=== PATIENT | female | born 1975 | race Caucasian/White ===

== ENCOUNTER 2024-11-28 08:43 | Day surgery (SDC) | payer OTHER, SELFPAY ==
--- NOTE | 2024-11-21 15:41 | HP.PCM_ITS ---
History and Physical Date of Admission: 11/28/24 HPI: The patient is a 49 year old female presenting for pre-operative visit. She is scheduled for Laparosocpy with LSO, right salpingectomy, hysteroscopy D&C with IUD insertion for menorrhagia, pelvic pain, left ovarian cyst and paratubal cyst and sterilization on 11/28/24. Procedure discussed along with risks, benefits and complications. Other alternatives discussed for management. Consent form signed? no. ? ? PAST MEDICAL HISTORY PAST MEDICAL HISTORYDiagnosisDate?Anemia?? A TEENAGER ?Hypothyroid??Infertility, female??WITH 1ST ?Rheumatoid Arthritis??Seroma??ANTERIOR TO UTERUS , SEE US 03/2011?Trauma??LEFT ELBOW FRACTURE 2012 ? ? PAST SURGICAL HISTORY PAST SURGICAL HISTORYProcedureLateralityDate? DELIVERY ONLY?05/20/2007? , low cervical? DELIVERY ONLY?11/14/2013?, low transverse?EXCISION PILONIDAL CYST/SINUS SIMPLE???HERNIA REPAIR HX?2018? abdominal recti repair and tummy tuck at same time?LIG/TRNSXJ FLP TUBE ABDL/VAG APPR UNI/BI?11/14/2013?Tubal ligation?PAST SURGICAL HISTORY OF???breast reduction?PAST SURGICAL HISTORY OF???RIGHT ELBOW ? ? ? CURRENT MEDICATIONS Current Outpatient MedicationsMedicationSigDispenseRefill?meloxicam (MOBIC) 15 mg tabletTake 15 mg by mouth.???spironolactone (ALDACTONE) 50 mg tabletTake 50 mg by mouth once daily.???No current facility-administered medications for this visit. ? ? ALLERGIES: Patient has no known allergies. ? PERSONAL HISTORY: SOCIAL HISTORY Social History?Tobacco Use?Smoking status:Never?Smokeless tobacco:NeverVaping Use?Vaping status:Never UsedSubstance Use Topics?Alcohol use:Yes??Comment: Rarely,NOT WHILE ?Drug use:No ? FAMILY HISTORY: FAMILY HISTORY FAMILY HISTORY ProblemRelationAge of Onset?ThyroidMother??other (Uterine problems)Mother?? Needed D&C?HypertensionFather??other (ovarian cancer)Maternal [id number] - 69?HeartMaternal Grandfather??HypertensionPaternal Grandmother??HeartPaternal Grandfather??DiabetesPaternal Uncle? ? ? REVIEW OF SYMPTOMS: GENERAL: denies fevers or chills ENDOCRINOLOGY: has not been on steroids Cardiology : denies palpitations or chest pain Respiratory: denies SOB or cough Hematology: denies history of prolonged bleeding or easy bruising or VTE Allergy: Denies history of personal or family history of allergy to anesthesia ? PHYSICAL EXAMINATION: ? VITALS: Last menstrual period 10/31/2024. ? GENERAL: The patient is well nourished, well hydrated in no acute distress. , The patient is oriented to time, place, and person. ? pelvic US 11/08/24: Indication menorrhagia with regular cycle, Dysmenorrhea, ovarian cyst left Impression Uterus 114 x 66 x 57 mm and axial Myometrium contains a notable scar defect measuring 7 mm deep by 5 mm long, there is 6 mm of residual myometrium and 18 mm of adjacent myometrium Endometrium 7 mm Cervix normal with nabothian cysts Right ovary 25 x 42 x 24 mm and normal O RADS one Left ovary 79 x 46 x 50 mm, there is a 52 x 46 x 52 mm unilocular simple cyst, O RADS two, recommend repeat imaging in 12 months. Additionally there is a 30 x 30 x ?38 mm bilocular cyst, O RADS two, recommend repeat imaging in 6 months. Almost certainly benign Recommendations O RADS two lesions in the left ovary. Recommend follow-up imaging in 6 months scar defect noted ? ? ? IMPRESSION: left ovarian cyst and paratubal cyst, sterilization and menorrhagia with regular cycle ? PLAN: The risks/benefits/alternatives and personal involved for the planned Laparosocpy with LSO, right salpingectomy, hysteroscopy D&C with polyp resection and IUD insertion for menorrhagia,were reviewed with the patient. Her questions were answered to her satisfaction and she desires to proceed. Consent was signed. I reviewed with her postop instructions and expectations. ? ? I have reviewed and updated past medical and surgical history, medications and allergies Assessment & Plan Assessment/Plan (1) Left ovarian cyst: (2) Sterilization: (3) Menorrhagia with regular cycle: (4) Endometrial polyp: (5) Encounter for IUD insertion:
[2024-11-28] VITALS (11 sets, daily range): BP systolic 91–129; BP diastolic 59–84; PULSE 65–94; RESP 16–18; TEMP 36–36.6; O2SAT 93–100; BMI 33.3
[2024-11-28] MEDS: Lactated Ringers 1,000 ML 15 ML IV (09:29)
[2024-11-28 09:35] LABS: Hematocrit 40.4 % (37-47); Hemoglobin 13.7 g/dL (12.0-15.0); Immature Granulocytes Count 0.020 X10^3/uL (0.0-0.0); Mean Corp Hgb Conc 33.9 g/dL (32-36); Mean Corpuscular Volume 86.7 fL (81-99); Mean Platelet Vol. 10.9 fl (6.2-12.0); NRBC Flagged by Analyzer 0 % (0-5); Platelet Count 218 K/mm3 (150-450); RBC Distribution Width CV 12.5 % (11.6-14.6); RBC Distribution Width SD 39.4 fl (35.1-43.9); Red Blood Count 4.66 M/mm3 (4.2-5.4); White Blood Count 7.1 K/mm3 (4.4-11.0)
--- NOTE | 2024-11-28 09:46 | PCM.PRE.AN2 ---
ASA Classification* ASA Classification ASA Classification: 2 Assessment & Plan Anesthesia* Anesthesia Assessment Anesthesia Assessment: Discussed sedation and/or anesthesia options, risks, benefits, and alternatives with patient/parents/legal guardian/POA. Questions invited. The patient/parents/legal guardian/POA seems to understand and agrees to proceed with anesthesia plan. Reviewed the physical assessment, medical history, allergy history and patient home medications list prior to surgery/procedure/anesthetic and documented any changes. Performed airway and anesthesia risk assessments. Anesthesia Type Anesthesia Type: General History Source History Obtained from:: Patient and Chart Anesthesia Focused Assessment* Temperature: 97.8 F Pulse Rate: 74 Blood Pressure: 129/84 Respiratory Rate: 18 Pulse Ox: 97 Oxygen Delivery Method: Room Air Airway Assessment Mouth opens: >3 cm Mallampati Score: I Teeth Condition: Intact Neck Range of motion (ROM): Full ROM Labs Anesthesia Preop lab: CBC WBC 7.1 K/mm3 (4.4-11.0) 11/28/24 09:15 11/28/24 RBC 4.66 M/mm3 (4.2-5.4) 11/28/24 09:15 11/28/24 Hgb 13.7 g/dL (12.0-15.0) 11/28/24 09:15 11/28/24 Hct 40.4 % (37-47) 11/28/24 09:15 11/28/24 Plt Count 218 K/mm3 (150-450) 11/28/24 09:15 11/28/24 CHEMISTRY Potassium 3.6 mmol/L (3.5-5.1) 08/29/13 12:08/29/13 Sodium 134 mmol/L (136-145) L 08/29/13 12:08/29/13 BUN 10 mg/dL (7-18) 08/29/13 12:08/29/13 Creatinine 0.5 mg/dL (0.6-1.0) L 08/29/13 12:06 08/29/13 Glucose 98 mg/dL (70-110) 08/29/13 12:06 08/29/13 COAG Pre-Assessment Diagnosis/Proposed Procedure Planned Operative Procedure(s): EXAM UNDER ANESTHESIA, LAPAROSCOPIC LEFT SAPLINGOOPHORECTOMY, RIGHT SALPINGECTOMY, HYSTEROSCOPY DILATION AND CURRETAG WITH POLYP RESECTION, AND IUD INSERTION Anesthesia History Anesthesia History - trademark paralegal: Anesthesia History - trademark paralegal Hx Hospitalization No 11/26/24 11:15 Any Problems With Anesthesia No 11/26/24 11:15 Cholinesterase deficiency No 11/26/24 11:15 You/Your Family Experience No 11/26/24 11:15 fever (hyperthermia) with Relationship Recent Exposure to Contagious No 11/28/24 09:24 Disease Does patient have nerve No 11/26/24 11:15 stimulator Patient instructed to have device shut off --Does patient have Pacemaker No 11/28/24 09:24 or ICD? When Was Last Pacemaker Check QUESTION #4 FULL TEXT: You/Your Family Experience fever (hyperthermia) with Anesthesia Last Oral Intake Last Oral intake: Last Oral Intake NPO since 20:30 11/28/24 09:24 Meds taken in AM with sips of No 11/28/24 09:24 water? Meds patient instructed to take am of surgery PONV PONV - trademark paralegal: PONV - trademark paralegal Female Yes 11/26/24 11:15 HX of Motion Sickness No 11/26/24 11:15 HX of N/V After Surgery No 11/26/24 11:15 Non-Smoker Yes 11/26/24 11:15 Duration of Surgery greater Yes 11/26/24 11:15 than 60 minutes Number of Risk Factors 3 11/26/24 11:15 PONV Score Moderate Risk 11/26/24 11:15 Height & Weight Height & Weight: Anesthesia: Height & Weight Height 5 ft 2 in 11/28/24 09:24 Weight: 82.6 kg 11/28/24 09:24 Body Mass Index (BMI) 33.3 11/28/24 09:24 Respiratory Assessment Respiratory Assessment - trademark paralegal: Respiratory Tract Infection Hx - trademark paralegal Hx Respiratory Tract Infection No 11/26/24 11:15 STOP Sleep Apnea STOP Sleep Apnea - trademark paralegal: STOP Sleep Apnea - trademark paralegal Hx Hypertension Yes: CONTROLLED WITH MEDS 11/26/24 11:15 Hx Sleep Apnea No 11/26/24 11:15 CPAP BIPAP Do you snore loudly (louder No 11/26/24 11:15 than talking or can be heard Do you often feel tired/ No 11/26/24 11:15 fatigued/ sleepy during daytime? Has anyone observed you stop No 11/26/24 11:15 breathing during sleep? STOP Results Negative 11/26/24 11:15 QUESTION #5 FULL TEXT : Do you snore loudly (louder than talking or can be heard through closed doors)? Tobacco Use History Tobacco Use History - trademark paralegal: Tobacco Use History - trademark paralegal Tobacco Use Smoking Status Never smoker 11/26/24 11:15 Hx Tobacco Use No 11/26/24 11:15 Years Smoking Packs Smoked per Day Smoking Cessation Date was within the last 15 years Hx Smoking Cessation Date Hx Smoking Cessation Counseling Hematologic Medial History Hematologic Hx - trademark paralegal: Hematologic Medical Hx - print shop helper Hx of Blood Transfusion No 11/26/24 11:15 Hx of Transfusion in last 3 No 11/26/24 11:15 Months Date of Last Transfusion (if within last 3 months) Ever experience any problems No 11/26/24 11:15 with transfusion(s)? Specify any problems Hx of Preganancy in last 3 No 11/26/24 11:15 Months Nurse Filling Out Transfusion [id number] 11/26/24 11:15 & Questions: Date: 11/26/24 11/26/24 11:15 Time: 11:20 11/26/24 11:15 Patient unable to answer at this time (ie. confused, unrespo /Reproduction History /Reproductive History - trademark paralegal: /Reproductive Hx- trademark paralegal Hx Now No 11/26/24 11:15 Gestational Age (in weeks): EDC: Hx Hx Para Hx Section SAB No 11/26/24 11:15 Active Medications Active Medications: Current Medications Generic Name Dose Route Start Last Admin Trade Name Freq PRN Reason Stop Dose Admin Acetaminophen 1,000 mg 11/28/24 10:25 11/28/24 09:29 Acetaminophen 500 Mg Tablet PO 11/28/24 10:26 1,000 mg PREOP ONE Administration Celecoxib 400 mg 11/28/24 10:25 11/28/24 09:29 Celecoxib 200 Mg Capsule PO 11/28/24 10:26 400 mg PREOP ONE Administration Lactated Ringer's 1,000 mls @ 15 mls/hr 11/28/24 09:00 11/28/24 09:29 IV 15 mls/hr .Q48H CLOVER Administration Levonorgestrel 1 each 11/28/24 10:25 Levonorgestrel Iud (Liletta) INTRA-UTER 11/28/24 10:26 X1 ONE PFSH Medical History Wears glasses Wears contact lenses History of Holter monitoring Umbilical hernia Rheumatoid arthritis Anxiety Depression HTN (hypertension) Home Medications ?Medication ?Instructions ?Recorded ?Last Taken ?Type spironolactone 50 mg tablet 50 mg PO DAILY 01/09/18 11/27/24 History meloxicam 15 mg tablet 15 mg PO DAILY 11/26/24 11/26/24 History tirzepatide 2.5 mg/0.5 mL 2.5 mg subcut QWEEK 11/26/24 11/20/24 History subcutaneous pen injector (Mounjaro) Allergy/AdvReac Type Severity Reaction Status Date / Time No Known Allergies Allergy Verified 11/28/24 09:22 Family History Father Hypertension Mother COPD (chronic obstructive pulmonary disease) Surgical History Tubal ligation status History of elbow surgery History of section History of excision of pilonidal cyst History of bilateral breast reduction surgery Social History Smoking Status: Never smoker Review of Systems (Anesthesia) ROS Narrative System reviewed and no additional complaints, except as documented.
[2024-11-28 09:51] LABS: Anion Gap 13 (5-15); BUN 11 mg/dL (4-19); BUN/Creat Ratio 15.6 RATIO (10-20); Calcium,Total 9.2 mg/dL (7.6-11.0); Carbon Dioxide 20.7 mmol/L (21.0-32.0); Chloride 104 mmol/L (98-108); Estimated Creatinine Clearance 101.88 ml/min (50-250); Glucose 97 mg/dL (70-99); Potassium 4.1 mmol/L (3.3-5.1)
--- OUTSIDE RECORDS SUMMARY | 2024-11-28 09:51 | XMS RPT_ITS | CCD ---
Author Organization [facility] Care Team Providers Care Flagger Name Role Phone VIRGINIA, VARGHESE A Unavailable Unavailable VIRGINIA, VARGHESE A Unavailable Unavailable VIRGINIA, VARGHESE A Unavailable Unavailable VIRGINIA, VARGHESE A Unavailable Unavailable VIRGINIA, VARGHESE A Unavailable Unavailable VIRGINIA, VARGHESE A Unavailable Unavailable HILLS, VARGHESE Consulting Unavailable AUBURN, VARGHESE Primary Care Unavailable AUBURN, VARGHESE Attending Unavailable HILLS, VARGHESE Admitting Unavailable PROVIDER, UNKNOWN Consulting Unavailable HILLS, VARGHESE Primary Care Unavailable HILLS, VARGHESE Consulting Unavailable AUBURN, VARGHESE Attending Unavailable HILLS, VARGHESE Admitting Unavailable PROVIDER, UNKNOWN Consulting Unavailable AUBURN, VARGHESE Consulting Unavailable AUBURN, VARGHESE Attending Unavailable HILLS, VARGHESE Admitting Unavailable HILLS, VARGHESE Primary Care Unavailable PROVIDER, UNKNOWN Consulting Unavailable AUBURN, VARGHESE Consulting Unavailable AUBURN, VARGHESE Attending Unavailable AUBURN, VARGHESE Admitting Unavailable AUBURN, VARGHESE Primary Care Unavailable PROVIDER, UNKNOWN Consulting Unavailable AUBURN, VARGHESE Consulting Unavailable AUBURN, VARGHESE Attending Unavailable AUBURN, VARGHESE Admitting Unavailable AUBURN, VARGHESE Primary Care Unavailable PROVIDER, UNKNOWN Consulting Unavailable Unavailable Primary Care Provider Unavailabl e JOSIE GRACE Attending Unavailable JOSIE GRACE Referring Unavailable JOSIE GRACE Attending Unavailable Shannock, Varghese Primary Care Unavailable Josie Grace Referring Unavailable Josie Grace Attending Unavailable Medications Current Medications Medication Drug Class(es) Dates Sig (Normalized) Sig (Original) meloxicam 15 mg oral tablet (4 sources) Nonsteroidal Anti-inflammatory Drug Start: 10-13-2024 meloxicam (MOBIC) 15 mg tablet Take 15 mg by mouth. 10/13/2024 Active norethindrone acetate 5 mg oral tablet (1 source) Start: 11-20-2024 End: 11-30-2024 take 1 tablet by mouth once daily norethindrone (AYGESTIN) 5 mg tablet Take 1 tablet by mouth once daily for 10 days. 10 tablet 11/20/2024 11/30/2024 Active spironolactone 50 mg oral tablet (4 sources) Aldosterone Antagonist take 1 tablet by mouth once daily spironolactone (ALDACTONE) 50 mg tablet Take 50 mg by mouth once daily. Active Completed/Discontinued Medications Medication Drug Class(es) Dates Sig (Normalized) Sig (Original) ALPRAZolam 0.5 mg oral tablet (1 source) Benzodiazepine End: 11-05-2024 take 1 tablet by mouth every twenty-four hours as needed ALPRAZolam (XANAX) 0.5 mg tablet Take 0.5 mg by mouth at bedtime as needed. 11/05/2024 Discontinued (Other) miSOPROStol 0.2 mg oral tablet (1 source) Prostaglandin E1 Analog Start: 07-14-2016 End: 11-05-2024 miSOPROStol (CYTOTEC) 200 mcg tablet Take 2 tabs the night before & 2 tabs the morning of the procedure - vaginally. 4 tablet 07/14/2016 11/05/2024 Discontinued (Other) Problems Active Problems Problem Classification Problem Date Documented Date Episodic/Chronic Contraceptive and procreative management (5 sources) Patient encounter status; Translations: [Encounter for sterilization] Onset: 11-20-2024 11-20-2024 Episodic Disorders of lipid metabolism (1 source) Pure hyperglyceridemia; Translations: [Pure hyperglyceridemia] Onset: 01-27-2024 Chronic Essential hypertension (1 source) Essential (primary) hypertension; Translations: [Essential (primary) hypertension] Onset: 01-27-2024 Chronic Menstrual disorders (17 sources) Menorrhagia; Translations: [Dysmenorrhea] Onset: 11-05-2024 11-05-2024 Chronic Other female genital disorders (2 sources) Cyst of uterine adnexa; Translations: [Other noninflammatory disorders of ovary, fallopian tube and broad ligament] Onset: 11-20-2024 11-20-2024 Episodic Other female genital disorders (4 sources) Polyp of corpus uteri; Translations: [Polyp of corpus uteri] Onset: 11-20-2024 11-20-2024 Episodic Other screening for suspected conditions (not mental disorders or infectious disease) (5 sources) Other specified abnormal findings of blood chemistry; Translations: [Abnormal results of thyroid function studies] Onset: 01-27-2024 Episodic Ovarian cyst (9 sources) Cyst of left ovary; Translations: [Unspecified ovarian cyst, left side] Onset: 11-05-2024 11-05-2024 Episodic Previous (3 sources) Previous delivery, delivered, with or without mention of antepartum condition; Translations: [Uterine scar from previous delivery] Onset: 11-20-2024 11-20-2024 Episodic Residual codes; unclassified (4 sources) Family history of malignant neoplasm of ovary; Translations: [Family history of malignant neoplasm of ovary] Onset: 11-20-2024 11-05-2024 Episodic Rheumatoid arthritis and related disease (2 sources) Rheumatoid arthritis with rheumatoid factor of multiple sites without organ or systems involvement; Translations: [RA W/RH FACTOR MX SITE NO ORGAN/SYS] Onset: 03-14-2018 Chronic Unclassified (1 source) Menstrual Problem Onset: 11-20-2024 Past or Other Problems Problem Classification Problem Date Documented Date Episodic/Chronic Hemorrhage during ; abruptio placenta; placenta previa (4 sources) Antepartum hemorrhage; Translations: [Hemorrhage in early , unspecified] Onset: 03-18-2013 Resolved: 11-26-2013 04-26-2021 Episodic Other complications of ; puerperium affecting management of mother (4 sources) Advanced maternal age ; Translations: [Advanced maternal age (AMA) in ] Onset: 03-25-2013 Resolved: 11-26-2013 04-26-2021 Episodic Other complications of (4 sources) H/O: premature delivery; Translations: [Supervision of other high risk pregnancies, unspecified trimester] Onset: 03-25-2013 Resolved: 11-26-2013 04-26-2021 Episodic Other complications of (4 sources) RhD negative; Translations: [Other specified related conditions, unspecified trimester] Onset: 03-25-2013 Resolved: 11-26-2013 04-26-2021 Episodic Other complications of (4 sources) Thrombocytopenic disorder; Translations: [Other diseases of the blood and blood-forming organs and certain disorders involving the immune mechanism complicating , unspecified trimester] Onset: 09-02-2013 Resolved: 07-14-2016 04-26-2021 Episodic Other connective tissue disease (4 sources) H/O: rheumatoid arthritis; Translations: [Personal history of other diseases of the musculoskeletal system and connective tissue] Onset: 03-25-2013 Resolved: 07-14-2016 04-26-2021 Episodic Other nutritional; endocrine; and metabolic disorders (4 sources) Obesity; Translations: [Obesity, unspecified] Onset: 03-25-2013 Resolved: 11-26-2013 04-26-2021 Chronic Other nutritional; endocrine; and metabolic disorders (4 sources) H/O: hypothyroidism; Translations: [Personal history of other endocrine, nutritional and metabolic disease] Onset: 03-25-2013 Resolved: 07-14-2016 04-26-2021 Episodic Other and delivery including normal (4 sources) Normal ; Translations: [Encounter for supervision of other normal , unspecified trimester] Onset: 10-19-2006 Resolved: 07-17-2007 08-27-2024 Episodic Other skin disorders (4 sources) Subcutaneous nodule; Translations: [Localized swelling, mass and lump, unspecified] Onset: 04-27-2011 Resolved: 03-18-2013 03-18-2013 Episodic Other skin disorders (4 sources) H/O: skin disorder; Translations: [Personal history of diseases of the skin and subcutaneous tissue] Onset: 03-25-2013 Resolved: 11-26-2013 04-26-2021 Episodic Results Test Name Value Interpretation Reference Range Facil ity HISTORY PHYSICALon HISTORY PHYSICAL HNO ID: [id number] Author: JOSIE GRACE MD Service: ? Author Type: Physician Type: H&P Filed: 11/21/2024 15:41 Note Text: Pre-Op History and Physical HPI: The patient is a 49 year old female presenting for pre-operative visit. She is scheduled for Laparosocpy with LSO, right salpingectomy, hysteroscopy DANDC with IUD insertion for menorrhagia, pelvic pain, left ovarian cyst and paratubal cyst and sterilization on 11/28/24. Procedure discussed along with risks, benefits and complications. Other alternatives discussed for management. Consent form signed? Yes. 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 spironolactone (ALDACTONE) 50 mg tablet Take 50 mg by mouth once daily. No current facility-administered medications for this visit. ALLERGIES: Patient has no known allergies. PERSONAL HISTORY: Social History Tobacco Use Smoking status: Never Smokeless tobacco: Never Vaping Use Vaping status: Never Used Substance Use Topics Alcohol use: Yes Comment: Rarely,NOT WHILE Drug use: No FAMILY HISTORY: FAMILY HISTORY Problem Relation Age of Onset Thyroid Mother other (Uterine problems) Mother Needed DANDC Hypertension Father other (ovarian cancer) Maternal Grandmother 60 - 69 Heart Maternal Grandfather Hypertension Paternal Grandmother Heart Paternal Grandfather Diabetes Paternal Uncle REVIEW OF SYMPTOMS: GENERAL: denies fevers or chills ENDOCRINOLOGY: has not been on steroids Cardiology : denies palpitations or chest pain Respiratory: denies SOB or cough Hematology: denies history of prolonged bleeding or easy bruising or VTE Allergy: Denies history of personal or family history of allergy to anesthesia PHYSICAL EXAMINATION: VITALS: Last menstrual period 10/31/2024. GENERAL: The patient is well nourished, well hydrated in no acute distress. , The patient is oriented to time, place, and person. pelvic US 11/08/24: Indication menorrhagia with regular cycle, Dysmenorrhea, ovarian cyst left Impression Uterus 114 x 66 x 57 mm and axial Myometrium contains a notable scar defect measuring 7 mm deep by 5 mm long, there is 6 mm of residual myometrium and 18 mm of adjacent myometrium Endometrium 7 mm Cervix normal with nabothian cysts Right ovary 25 x 42 x 24 mm and normal O RADS one Left ovary 79 x 46 x 50 mm, there is a 52 x 46 x 52 mm unilocular simple cyst, O RADS two, recommend repeat imaging in 12 months. Additionally there is a 30 x 30 x 38 mm bilocular cyst, O RADS two, recommend repeat imaging in 6 months. Almost certainly benign Recommendations O RADS two lesions in the left ovary. Recommend follow-up imaging in 6 months scar defect noted IMPRESSION: left ovarian cyst and paratubal cyst, sterilization and menorrhagia with regular cycle PLAN: The risks/benefits/alterna tives and personal involved for the planned Laparosocpy with LSO, right salpingectomy, hysteroscopy DANDC with polyp resection and IUD insertion for menorrhagia,were reviewed with the patient. Her questions were answered to her satisfaction and she desires to proceed. Consent was signed. I reviewed with her postop instructions and expectations. I have reviewed and updated past medical and surgical history, medications and allergies Josie Grace M.D. Normal [facility] US Pelvison 11-08-2024 Indication menorrhagia with regular cycle, Dysmenorrhea, ovarian cyst left Impression Uterus 114 x 66 x 57 mm and axial Myometrium contains a notable scar defect measuring 7 mm deep by 5 mm long, there is 6 mm of residual myometrium and 18 mm of adjacent myometrium Endometrium 7 mm Cervix normal with nabothian cysts Right ovary 25 x 42 x 24 mm and normal O RADS one Left ovary 79 x 46 x 50 mm, there is a 52 x 46 x 52 mm unilocular simple cyst, O RADS two, recommend repeat imaging in 12 months. Additionally there is a 30 x 30 x 38 mm bilocular cyst, O RADS two, recommend repeat imaging in 6 months. Almost certainly benign Recommendations O RADS two lesions in the left ovary. Recommend follow-up imaging in 6 months scar defect noted History Medical History Surgery: section x 2 Menstrual History LMP on 10/31/2024. Contraception: tubal sterilization Method Transabdominal, transvaginal, 3D ultrasound examination, Color Doppler examination. View: Suboptimal view: restricted by increased bowel gas. Suboptimal view: due to axial uterine orientation Uterus Uterus: Visualized Uterus position: axial Description of uterine malformations: none Myometrium: heterogeneous Endometrium: normal Cervix details: cystic lesions identified suggesting superficial Nabothian cysts Uterus length 114 mm Uterus width 66 mm Uterus height 57 mm Uterus Vol 223.8 cm Endometrial thickness, total 6.8 mm Fibroids: No fibroids identified Polyps: No polyps identified Right Ovary Rt ovary: Visualized Rt ovary details: TA only Rt ovary D1 25 mm Rt ovary D2 42 mm Rt ovary D3 24 mm Rt ovary Vol 13.2 cm Left Ovary Lt ovary: Visualized Lt ovary D1 79 mm Lt ovary D2 46 mm Lt ovary D3 50 mm Lt ovary Vol 95.1 cm Lt ovarian cyst(s): Cysts identified Lt ovarian cyst D1 52 mm Lt ovarian cyst D2 46 mm Lt ovarian cyst D3 52 mm Lt ovarian cyst mean 50.0 mm Lt ovarian cyst vol 65.127 cm Lt ovarian cyst findings: Unilocular simple cyst Lt ovarian cyst D1 30 mm Lt ovarian cyst D2 30 mm Lt ovarian cyst D3 38 mm Lt ovarian cyst mean 32.7 mm Lt ovarian cyst vol 17.907 cm Lt ovarian cyst findings: Bilocular cyst (single avascular septation) with smooth borders Cul de Sac Visualized. no free fluid visualized Performed By: Katalina Jacinto RDMS Read By: Ginny Landers M.D. MATERNAL MEDICINE [facility] Radiology Study observation (narrative) [facility] CNOVon 11-05-2024 CNOV Office Visit (OBGYWM ) RADHA MORALES ([id number]) 1975 F Date Time Provider Department 11/05/24 9:40 AM JOSIE GRACE OBGYWM During your visit today, we recorded the following information about you: Blood pressure Weight Last Period 122/82 83.5 kg 10/31/24 Josie Grace MD 11/05/2024 12:59 PM Signed Obstetrics and Gynecology [place] [employer] Visit Subjective Recording using Tweet[employer] software for draft documentation of the visit was discussed with the patient/authorized customer care representative; all questions welcomed and answered. Patient/authorized customer care representative agreed to proceed CHIEF COMPLAINT: The patient is a 49-year-old female presenting for evaluation of a 7 cm ovarian cyst and associated pelvic pain. HPI: Pelvic Pain - Reports a constant dull pain on the left side, described as a constant dull pain with a sensation of pressure, particularly noticeable during certain movements. Present for several months. - Pain is exacerbated during menstruation and sometimes during bowel movements and intercourse. - Denies any sensation of something hanging down low in the vagina or any issues with urinary incontinence. - Denies any changes in sexual partners or concerns about STDs. - Denies any hot flashes, but reports some vaginal dryness. Ovarian Cyst - Recently evaluated by her primary care provider due to pelvic pain; a 7 cm ovarian cyst was discovered on ultrasound. - Pap smear -normal this year per her report - Referred to gynecology for further evaluation and management of the cyst. Menstrual Irregularities - Reports regular menstrual cycles occurring every 3.5 to 5 weeks, lasting approximately 4 days. 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 - Reports heavy bleeding on the heaviest days, requiring changing protection every 1-2 hours, and passing large clots. - Experiences cramping and lower back pain during menstruation, for which she takes Pamprin. - Occasionally experiences nausea as part of PMS symptoms. - Notes post-menstrual spotting, described as a spot of shhh type stuff when wiping. Weight Management - Currently on a GLP-1 medication for about 2 years, resulting in a total weight loss of 40 pounds. - Reports that the weight loss has been slow but steady. - Experiences slower bowel movements since starting the GLP-1 medication, but denies any significant constipation or changes in stool color. - Maintains an active lifestyle Family History of Cancer - Maternal grandmother diagnosed with ovarian cancer in her 60s. - Mother has a history of uterine polyps but no cancer. - No other known family history of cancer on either the maternal or paternal side. HISTORY: OB History Gravida3 Para2 Term1 Preterm1 AB1 Living2 SAB1 IAB0 Ectopic0 Multiple0 Live Births2 Sweeper Brush Maker Machine History LMP: 10/31/2024 (Exact Date), Having periods Age at Menarche: 16 Age at First : Age at Menopause: Sweeper Brush Maker Machine History Comments: Sexual Activity: Yes; Male; BTO w/ c/s Contraception: Tubal Ligation Menstrual Tracking History Flowsheet Row Office Visit from 11/05/2024 in OB/Gynecology Period Cycle (Days) 28 Period Duration (Days) 4 Menstrual Flow Moderate PAST MEDICAL HISTORY Diagnosis Date Anemia A TEENAGER Hypothyroid Infertility, female WITH 1ST Rheumatoid Arthritis Seroma ANTERIOR TO UTERUS , SEE US 03/2011 Trauma LEFT ELBOW FRACTURE 2012 PAST SURGICAL HISTORY Procedure Laterality Date DELIVERY ONLY 05/20/2007 , low cervical DELIVERY ONLY 11/14/2013 , low transverse EXCISION PILONIDAL CYST/SINUS SIMPLE HERNIA REPAIR HX 2018 abdominal recti repair and tummy tuck at same time LIG/TRNSXJ FLP TUBE ABDL/VAG APPR UNI/BI 11/14/2013 Tubal ligation PAST SURGICAL HISTORY OF breast reduction PAST SURGICAL HISTORY OF RIGHT ELBOW FAMILY HISTORY Problem Relation Age of Onset Thyroid Mother other (Uterine problems) Mother Needed DANDC Hypertension Father other (ovarian cancer) Maternal Grandmother 60 - 69 Heart Maternal Grandfather Hypertension Paternal Grandmother Heart Paternal Grandfather Diabetes Paternal Uncle Social History Tobacco Use Smoking status: Never Smokeless tobacco: Never Vaping Use Vaping status: Never Used Substance Use Topics Alcohol use: Yes Comment: Rarely,NOT WHILE Drug use: No Current Outpatient Medications Medication Sig meloxicam (MOBIC) 15 mg tablet Take 15 mg by mouth. spironolactone (ALDACTONE) 50 mg tablet Take 50 mg by mouth once daily. ALPRAZolam (XANAX) 0.5 mg tablet Take 0.5 mg by mouth at bedtime as needed. (Patient not taking: Reported on 11/05/2024) miSOPROStol (CYTOTEC) 200 mcg tablet Take 2 tabs the night before AND 2 tabs the mor (more content not included)... Normal [facility] Pathology biopsy report Darius (Tiss)on 11-05-2024 AP DISCLAIMER Normal [facility] Comment on above: Order Comment: Speci men Type: TISSUE SPECIMEN Ordering Facility: [facility] Address: [address] [place] [address] Result Comment: Analisa echevarria Developed Test (LDT) Disclaimer: Performance characteristics of immunohistochemical, immunofluorescent, and chromogenic in-situ hybridization tests have been determined by the performing laboratory within [facility]'s Paul Jamison Pathology and Laboratory Medicine Department ([facility], [facility], [facility], [facility], [facility], [facility], or [facility]) in a manner consistent with CLIA requirements. One or more of these tests may not have been cleared or approved by the FDA. [facility] is regulated under CLIA as qualified to perform high-complexity testing. These tests are used for clinical purposes. These should not be regarded as investigational or for research. Positive and negative controls stain appropriately. Performed By: #### 6 6121-5 #### [facility] CLIA [id number] [address] [place], [place] [address] [place] CASE REPORT Normal [facility] Comment on above: Order Comment: Speci men Type: TISSUE SPECIMEN Ordering Facility: [facility] Address: [address] [place] [address] Result Comment: Surg [facility] Pathology Report Case: [id number] Authorizing Provider: Josie Grace MD Collected: 11/05/2024 02:13 PM Ordering Location: OB/Gynecology Received: 11/05/2024 04:02 PM Pathologist: Aliya Ambrosio MD Specimen: Endometrium, Biopsy Performed By: #### 6 6121-5 #### [facility] CLIA [id number] [address] [place] [address] STATES OF [facility] CLINICAL HISTORY menorrhagia with regular cycle Normal [facility] Comment on above: Order Comment: Speci men Type: TISSUE SPECIMEN Ordering Facility: [facility] Address: [address] [place] [address] Performed By: #### 6 6121-5 #### [facility] CLIA [id number] [address] [place] [address] OF [place] FINAL DIAGNOSIS Normal [facility] Comment on above: Order Comment: Speci men Type: TISSUE SPECIMEN Ordering Facility: [facility] Address: [address] [place] [address] Result Comment: Endo metrium, biopsy: Proliferative pattern endometrium. Benign endometrial polyp. at 1524 EDT Performed By: #### 6 6121-5 #### [facility] CLIA [id number] [address] [place] [address] OF [place] FINAL PERFORMING LAB Normal [facility] Comment on above: Order Comment: Speci men Type: TISSUE SPECIMEN Ordering Facility: [facility] Address: [address] [place] [address] Result Comment: Diag nostic interpretation performed at: [facility], [address] [place] [address], [place] [address] CLIA# [id number] Financial Auditor: Santana Russ MD Performed By: #### 6 6121-5 #### [facility] CLIA [id number] [address] [place] [address] [place] GROSS DESCRIPTION Normal [facility] Comment on above: Order Comment: Speci men Type: TISSUE SPECIMEN Ordering Facility: [facility] Address: [address] [place] [address] Result Comment: A. E ndometrium, Biopsy Received in formalin are multiple orr to brown, soft feathery segments of tissue admixed with mucinous material aggregating to 5.0 x 2.6 x 0.2 cm. Totally submitted in two cassettes. DB November 06, 2024 2:50 AM Gross examination performed at [facility], [address] [place] [address] Performed By: #### 6 6121-5 #### [facility] CLIA [id number] [address] [place] [address] [place] UA DIP,URINE HCG (POC)on Beta HCG ( test) Ql (U) Negative Negative [facility] Comment on above: Location:[facility], [address], [place], [address] Dimension Warehouse Supervisor (POCT) Internal QC OK [facility] Location:[facility], [facility] [address] [place], [address] [facility] POINT OF CARE [facility] 3D MAMM BILAT SCREENon 08-23 3D MAMM BILAT SCREEN [address] [address] Patient: RADHA MORALES Phone#: : 1975 Age: 48 Gender: F Pt. Type: Out Account: [id number] Location: Ordering: [facility] Exam Date: 08/23/2024/13:10 Family Phys: Charge Code: [id number] Physician: [place] Order #: [id number] Dose#: PROCEDURE: BILATERAL SCREENING BREAST TOMOSYNTHESIS MAMMOGRAM WITH CAD COMPARISON: None. INDICATIONS: Baseline. BREAST COMPOSITION: Heterogeneously dense, which may obscure small masses. FINDINGS: DIAGNOSTIC CATEGORY 1--NEGATIVE: RIGHT BREAST: No significant suspicious finding. LEFT BREAST: No significant suspicious finding. RECOMMENDATIONS: ROUTINE MAMMOGRAM AND CLINICAL EVALUATION IN 12 MONTHS. PLEASE NOTE: A NORMAL MAMMOGRAM DOES NOT EXCLUDE THE POSSIBILITY OF BREAST CANCER. A CLINICALLY SUSPICIOUS PALPABLE LUMP SHOULD BE BIOPSIED. THIS FACILITY UTILIZES A REMINDER SYSTEM TO ENSURE THAT ALL PATIENTS RECEIVE REMINDER LETTERS FOR APPOINTMENTS. THIS INCLUDES REMINDERS FOR ROUTINE MAMMOGRAMS, DIAGNOSITC MAMMOGRAMS, OR OTHER BREAST IMAGING INTERVENTIONS WHEN APPROPRIATE. THIS PATIENT WILL BE PLACED IN THE APPROPRIATE REMINDER SYSTEM. Dictated by: Esha Suarez MD on 08/23/2024 at 14:44 Approved by: Esha Suarez MD on 08/23/2024 at 14:46 Normal [facility] 08-20-2024 [place] [address] Patient: RADHA MORALES Phone#: : 1975 Age: 48 Gender: F Pt. Type: Out Account: [id number] Location: Ordering: [facility] Exam Date: 08/20/2024/13:56 Family Phys: Charge Code: [id number] Physician: [place] Order #: [id number] Dose#: PROCEDURE: PELVIC ULTRASOUND, TRANSABDOMINAL ENDOVAGINAL COMPARISON: None. INDICATIONS: Pain TECHNIQUE: Pelvic ultrasound using transabdominal and endovaginal technique. FINDINGS: UTERUS: Size is 8.9 x 5.2 x 5.9 cm with unremarkable appearance. Endometrial thickness is 10.0 mm. Nabothian cysts are present in the lower uterine segment. ADNEXAE: Right ovary is 2.6 x 4.6 x 1.3 cm. Left ovary is 5.8 x 7.1 x 6.0 cm. Left adnexal cysts are present. The larger is 7 x 6 x 6 centimeters. CUL-DE-SAC: Normal. No fluid or mass. OTHER: Negative. CONCLUSION: 1. Nabothian cysts are present in the lower uterine segment. 2. A 7 centimeter left adnexal cyst is present. Dictated by: Esha Suarez MD on 08/20/2024 at 14:50 Approved by: Esha Suarez MD on 08/20/2024 at 14:53 Normal [facility] PELVIC ENDO VAGINALon PELVIC ENDO VAGINAL [place] [address] Patient: RADHA MORALES Phone#: : 1975 Age: 48 Gender: F Pt. Type: Out Account: [id number] Location: Ordering: [facility] Exam Date: 08/20/2024/13:56 Family Phys: Charge Code: [id number] Physician: [place] Order #: [id number] Dose#: PROCEDURE: PELVIC ULTRASOUND, TRANSABDOMINAL ENDOVAGINAL COMPARISON: None. INDICATIONS: Pain TECHNIQUE: Pelvic ultrasound using transabdominal and endovaginal technique. FINDINGS: UTERUS: Size is 8.9 x 5.2 x 5.9 cm with unremarkable appearance. Endometrial thickness is 10.0 mm. Nabothian cysts are present in the lower uterine segment. ADNEXAE: Right ovary is 2.6 x 4.6 x 1.3 cm. Left ovary is 5.8 x 7.1 x 6.0 cm. Left adnexal cysts are present. The larger is 7 x 6 x 6 centimeters. CUL-DE-SAC: Normal. No fluid or mass. OTHER: Negative. CONCLUSION: 1. Nabothian cysts are present in the lower uterine segment. 2. A 7 centimeter left adnexal cyst is present. Dictated by: Esha Suarez MD on 08/20/2024 at 14:50 Approved by: Esha Suarez MD on 08/20/2024 at 14:53 Normal [facility] [employer] Cytology Reporton 2024 [employer] Cytology Report . Pathology Reports Accession: Collected Date/Time: Received Date/Time: Pathologist: [id number] 08/08/2024 14:44 EDT 08/09/2024 18:00 EDT [employer] Cytology Report SPECIMEN: Specimen Description: Liquid Prep w Imaging and HPV Specimen: CERVIX Screening or Diagnostic: SCREENING RELEVANT HISTORY: LMP: 07/12/2024 : No Lactating: No Post : No SPECIMEN ADEQUACY: SATISFACTORY FOR EVALUATION Endocervical/Transform ational zone component present INTERPRETATION/RESULTS : NEGATIVE FOR INTRAEPITHELIAL LESION OR MALIGNANCY HIGH RISK HPV TESTING: Event Code Result HPV Interp See Interp HPVN HPV Interp Text: High Risk HPV Typing: NEGATIVE HPV types 16, 18, 31, 33, 35, 39, 45, 51, 52, 56, 58, 59, 66 and 68 DNA were undetectable or below the pre-set threshold. The willie High-Risk HPV DNA Test is not intended for use as a screening device for Pap normal women under age 30 and is not intended to substitute for regular Pap screening. The willie High-Risk HPV DNA Test is designed to augment existing methods for the detection of cervical disease and should be used in conjunction with clinical information derived from other diagnostic and screening tests, physical examinations and full medical history in accordance with appropriate patient management procedures. NOTE: A negative result does not preclude the presence of HPV infection because results depend on adequate specimen collection, absence of inhibitors and sufficient DNA to be detected. As of: 08/16/24 09:33 EDT Pathology Reports Accession: Collected Date/Time: Received Date/Time: Pathologist: [id number] 08/08/2024 14:44 EDT 08/09/2024 18:00 EDT COMMENT: This Pap Test was successfully processed and evaluated with the assistance of the [address] Thin[employer] Test Imaging System. Verified by Pathology report verified by [facility] Screened by: AUGUSTINA Electronically signed by Alis Beltran Sign-Out Date: 08/16/2024 09:39 Performing Lab: [facility], [address] [place] [address] Pathology Dept Disclaimer The Pap test is a screening test for cervical cancer. As evidenced by published data, it is subject to both inherent false negative and false positive results. Your patient's results should be interpreted in context with pertinent clinical history including gynecological examination. Normal [facility] HPVon 08-13-2024 HPV Interp [facility] Comment on above: Order Comment: Order placed by AP_HPV_ORDER rule from [id number] Result Comment: High Risk HPV Typing: NEGATIVE HPV types 16, 18, 31, 33, 35, 39, 45, 51, 52, 56, 58, 59, 66 and 68 DNA were undetectable or below the pre-set threshold. The willie High-Risk HPV DNA Test is not intended for use as a screening device for Pap normal women under age 30 and is not intended to substitute for regular Pap screening. The willie High-Risk HPV DNA Test is designed to augment existing methods for the detection of cervical disease and should be used in conjunction with clinical information derived from other diagnostic and screening tests, physical examinations and full medical history in accordance with appropriate patient management procedures. NOTE: A negative result does not preclude the presence of HPV infection because results depend on adequate specimen collection, absence of inhibitors and sufficient DNA to be detected. See [facility] HPVN Performed By: #### H PV #### [place] [address] HPV Source Cervix [facility] Comment on above: Order Comment: Order placed by AP_HPV_ORDER rule from [id number] Performed By: #### H PV #### [place] [address] TSHon 07-31-2024 TSH Qn 2.65 m[IU]/L Normal 0.35 - 3.74 [facility] Comment on above: Performed By: #### 2 27613 #### [facility],[address] [place] [address] 27[address] CMP with eGFRon 01-27-2024 AGE 48 years Normal [facility] Comment on above: Performed By: #### 2 97467 #### [facility],[address] [place] [address] 33458 Albumin [Mass/Vol] 4.2 g/dL Normal 3.4 - 5.0 [facility] Comment on above: Performed By: #### 2 15012 #### [facility],[address] [place] [address] 90083 Albumin/Globulin [Mass ratio] 1.0 {ratio} Normal 0.9 - 1.6 [facility] Comment on above: Performed By: #### 2 87535 #### [facility],[address] [place] [address] 35976 ALK PHOS 51 U/L Normal 46 - 116 [facility] Comment on above: Performed By: #### 2 32834 #### [facility],[address] [place] [address] 69361 ALT [Catalytic activity/Vol] 32 U/L Normal 16 - 63 [facility] Comment on above: Performed By: #### 2 52184 #### [facility],[address] [place] [address] 31459 Anion gap [Moles/Vol] 12 mmol/L Normal 10 - 20 [facility] Comment on above: Performed By: #### 2 55804 #### [facility],[address] [place] [address] 89802 AST [Catalytic activity/Vol] 18 U/L Normal 13 - 39 [facility] Comment on above: Performed By: #### 2 69821 #### [facility],[address] [place] [address] 33593 B/C RATIO 20 ratio Normal 0 - 30 [facility] Comment on above: Performed By: #### 2 90559 #### [facility],[address] [place] [address] 76164 Bilirubin [Mass/Vol] 0.3 mg/dL Normal 0.2 - 1.0 [facility] Comment on above: Performed By: #### 2 56716 #### [facility],[address] [place] [address] 52651 Calcium [Mass/Vol] 9.3 mg/dL Normal 8.5 - 10.1 [facility] Comment on above: Performed By: #### 2 55717 #### [facility],[address] [place] [address] 81470 Chloride [Moles/Vol] 102 mmol/L Normal 98 - 107 [facility] Comment on above: Performed By: #### 2 51749 #### [facility],[address] [place] [address] 14599 CMP with eGFR Normal [facility] Comment on above: Result Comment: COMP REHENSIVE METABOLIC PANEL Performed By: #### 2 34261 #### [facility],[address] [place] [address] 10558 CO2 [Moles/Vol] 27.7 mmol/L Normal 21.0 - 32.0 [facility] Comment on above: Performed By: #### 2 19339 #### [facility],[address] [place] [address] 35674 Creatinine [Mass/Vol] 0.75 mg/dL Normal 0.55 - 1.02 [facility] Comment on above: Performed By: #### 2 43009 #### [facility],[address] [place] [address] 44200 GFR/1.73 sq M.predicted among non-blacks MDRD (S/P/Bld) [Vol rate/Area] mL/min/{1.73_m2} Normal 60 - 999 [facility] Comment on above: Performed By: #### 2 45025 #### [facility],[address] [place] [address] 65103 Result Comment: ACCO RDING TO THE NATIONAL KIDNEY DISEASE EDUCATION PROGRAM(NKDE), A NORMAL eGFR IS A VALUE GREATER THAN OR EQUAL TO 60 ML/MIN/1.73 SQ METERS. CHRONIC KIDNEY DISEASE: <60mL/MIN/1.73 SQ METERS KIDNEY FAILURE: <15mL/MIN/1.73 SQ METERS THIS TEST SHOULD ONLY BE USED FOR PATIENTS 18 YEARS OF AGE AND OLDER. Globulin (S) [Mass/Vol] 4.1 g/dL High 1.5 - 3.8 [facility] Comment on above: Performed By: #### 2 76763 #### [facility],[address] [place] [address] 70988 Glucose [Mass/Vol] 94 mg/dL Normal 74 - 106 [facility] Comment on above: Performed By: #### 2 39117 #### [facility],[address] [place] [address] 73313 Potassium [Moles/Vol] 3.6 mmol/L Normal 3.5 - 5.1 [facility] Comment on above: Performed By: #### 2 43287 #### [facility],[address] [place] [address] 05450 Protein [Mass/Vol] 8.3 g/dL High 6.4 - 8.2 [facility] Comment on above: Performed By: #### 2 34223 #### [facility],[address] [place] [address] 83141 Sodium [Moles/Vol] 138 mmol/L Normal 136 - 145 [facility] Comment on above: Performed By: #### 2 41757 #### [facility],[address] [place] [address] 28553 Urea nitrogen [Mass/Vol] 15 mg/dL Normal 7 - 18 [facility] Comment on above: Performed By: #### 2 79912 #### [facility],[address] [place] [address] 39719 LIPID PROFILEon 01-27-2024 Cholesterol [Mass/Vol] 174 mg/dL Normal 0 - 240 [facility] Comment on above: Performed By: #### 2 39583 #### [facility],[address] [place] [address] 35790 Cholesterol in HDL [Mass/Vol] 38 mg/dL Low 40 - 60 [facility] Comment on above: Performed By: #### 2 59329 #### [facility],[address] [place] [address] 22721 Cholesterol in LDL [Mass/Vol] 112 mg/dL Normal 0 - 129 [facility] Comment on above: Performed By: #### 2 12795 #### [facility],[address] [place] [address] 72723 Cholesterol.total/ Cholesterol in HDL [Mass ratio] 4.6 {ratio} Normal 0.0 - 5.0 [facility] Comment on above: Performed By: #### 2 38207 #### [facility],[address] [place] [address] 12240 Lipid 1996 panel Normal [facility] Comment on above: Result Comment: LIPI D PROFILE Performed By: #### 2 67027 #### [facility],[address] [place] [address] 19652 Triglyceride [Mass/Vol] 118 mg/dL Normal 0 - 150 [facility] Comment on above: Performed By: #### 2 49244 #### [facility],[address] [place] [address] 526[address] TSHon 01-27-2024 TSH Qn 4.17 m[IU]/L High 0.35 - 3.74 [facility] Comment on above: Performed By: #### 2 78019 #### [facility],[address] [place] [address] 74148 VIDHon 02-04-2023 Vit. D 25-Hydroxy 96.2 ng/mL Normal [facility] ([place]) Comment on above: Result Comment: Inte rpretive Values Based on Total 25(OH)D: Severe Deficiency <20 ng/mL Mild to Moderate Deficiency 20-30 ng/mL Optimum Levels 30-100 ng/mL Toxicity Possible >100 ng/mL Performed By: #### V IDH #### [place] [address] Coronavirus 2019on 2 SARS-CoV-2 (COVID-19) RNA EMIGDIO+probe Ql (Unsp spec) Abnormal Negative for COVID19 (SARS CoV2) by RT-PCR or equival [facility] Comment on above: Result Comment: Posi tive for This test was developed and its performance characteristics determined by [facility] [place]. This test has been authorized by FDA under an Emergency Use Authorization (EUA). This test has been validated in accordance with the FDA's Guidance Document Policy for Diagnostics Testing in Laboratories Certified to Perform High Complexity Testing under CLIA prior to Emergency use Authorization for Coronavirus Disease 2019 during the Public Health Emergency issued on June 29, 2019. Test performed by [facility], [facility], [address] [place] [id number]. COVID19 (SARS This test was developed and its performance characteristics determined by [facility] [place]. This test has been authorized by FDA under an Emergency Use Authorization (EUA). This test has been validated in accordance with the FDA's Guidance Document Policy for Diagnostics Testing in Laboratories Certified to Perform High Complexity Testing under CLIA prior to Emergency use Authorization for Coronavirus Disease 2019 during the Public Health Emergency issued on June 29, 2019. Test performed by [facility], [facility], [address] [place] [address]. CoV2) by RT-PCR This test was developed and its performance characteristics determined by [facility] [place]. This test has been authorized by FDA under an Emergency Use Authorization (EUA). This test has been validated in accordance with the FDA's Guidance Document Policy for Diagnostics Testing in Laboratories Certified to Perform High Complexity Testing under CLIA prior to Emergency use Authorization for Coronavirus Disease 2019 during the Public Health Emergency issued on June 29, 2019. Test performed by [facility], [facility] [place], [address] [id number]. or equivalent This test was developed and its performance characteristics determined by [facility] [place]. This test has been authorized by FDA under an Emergency Use Authorization (EUA). This test has been validated in accordance with the FDA's Guidance Document Policy for Diagnostics Testing in Laboratories Certified to Perform High Complexity Testing under CLIA prior to Emergency use Authorization for Coronavirus Disease 2019 during the Public Health Emergency issued on June 29, 2019. Test performed by [facility], [facility] [place], [address] [place] [address]. ethod.(*) This test was developed and its performance characteristics determined by [facility] [place]. This test has been authorized by FDA under an Emergency Use Authorization (EUA). This test has been validated in accordance with the FDA's Guidance Document Policy for Diagnostics Testing in Laboratories Certified to Perform High Complexity Testing under CLIA prior to Emergency use Authorization for Coronavirus Disease 2019 during the Public Health Emergency issued on June 29, 2019. Test performed by [facility], [facility] [place], [address] [place] [address]. SARS-CoV-2 (COVID-19) RNA EMIGDIO+probe Ql (Unsp spec) URTS Normal [facility] COMPREHENSIVE METABOLIC PANE Morgan 10-25-2019 Albumin [Mass/Vol] 4.9 g/dL Normal 3.6-5.1 [facility] Comment on above: Performed By: #### 7 600, 55020 #### [facility]-[address], [address] [place], [place] [id number] [employer] Salesperson: Francisco Herbert MD Albumin/Globulin [Mass ratio] 1.7 (calc) Normal 1.0-2.5 [facility] Comment on above: Performed By: #### 7 600, 16051 #### [facility]-[address], [address] [place], [place] [address] Menswear Salesperson: Francisco Herbert MD ALP [Catalytic activity/Vol] 50 U/L Normal 31-125 [facility] Comment on above: Performed By: #### 7 600, 07623 #### [facility]-[address], [address] [place], [place] [address] Menswear Salesperson: Francisco Herbert MD ALT [Catalytic activity/Vol] 28 U/L Normal 6-29 [facility] Comment on above: Performed By: #### 7 600, 29636 #### [facility]-[address], [address] [place] [address] Menswear Salesperson: Francisco Herbert MD AST [Catalytic activity/Vol] 20 U/L Normal 10-30 [facility] Comment on above: Performed By: #### 7 600, 87755 #### [facility]-[address], [address] [place] [address] [employer] Salesperson: Francisco Herbert MD Bilirubin [Mass/Vol] 0.3 mg/dL Normal 0.2-1.2 [facility] Comment on above: Performed By: #### 7 600, 69058 #### [facility]-[place] [address] Menswear Salesperson: Francisco Herbert MD Calcium [Mass/Vol] 9.9 mg/dL Normal 8.6-10.2 [facility] Comment on above: Performed By: #### 7 600, 53392 #### [facility] [address] [employer]wear Salesperson: Francisco Herbert MD Chloride [Moles/Vol] 101 mmol/L Normal 98-110 [facility] Comment on above: Performed By: #### 7 600, 55948 #### [facility] [address] [employer]wear Salesperson: Francisco Herbert MD CO2 [Moles/Vol] 26 mmol/L Normal 20-32 [facility] Comment on above: Performed By: #### 7 600, 01501 #### [facility] [address] Menswear Salesperson: Francisco Herbert MD Creatinine [Mass/Vol] 0.70 mg/dL Normal 0.50-1.10 [facility] Comment on above: Performed By: #### 7 600, 87406 #### [facility]-[address], [address] [place] [address] Menswear Salesperson: Francisco Herbert MD eGFR NON-AFR. SYRIAN 107 mL/min/1.73m2 Normal > OR = 60 [facility] Comment on above: Performed By: #### 7 600, 93202 #### [facility]-[address], [address] [place] [address] Menswear Salesperson: Francisco Herbert MD GFR/1.73 sq M predicted among blacks MDRD (S/P/Bld) [Vol rate/Area] 124 mL/min/{1.73_m2} Normal > OR = 60 [facility] Comment on above: Performed By: #### 7 600, 54658 #### [facility]-[address], [address] [place] [address] Menswear Salesperson: Francisco Herbert MD Globulin (S) [Mass/Vol] 2.9 g/dL (calc) Normal 1.9-3.7 [facility] Comment on above: Performed By: #### 7 600, 41945 #### [facility]-[address], [address] [place] [address] Menswear Salesperson: Francisco Herbert MD Glucose [Mass/Vol] 98 mg/dL Normal 65-99 [facility] Comment on above: Result Comment: Fasting reference interval Performed By: #### 7 600, 94539 #### [facility]-[place] [address] Menswear Salesperson: Francisco Herbert MD Potassium [Moles/Vol] 4.4 mmol/L Normal 3.5-5.3 [facility] Comment on above: Performed By: #### 7 600, 45478 #### [facility]-[address], [address] [place] [address] Menswear Salesperson: Francisco Herbert MD Protein [Mass/Vol] 7.8 g/dL Normal 6.1-8.1 [facility] Comment on above: Performed By: #### 7 600, 76129 #### [facility] [address] Menswear Salesperson: Francisco Herbert MD Sodium [Moles/Vol] 137 mmol/L Normal 135-146 [facility] Comment on above: Performed By: #### 7 600, 84971 #### [facility] , [address] [place] [address] Menswear Salesperson: Francisco Herbert MD Urea nitrogen [Mass/Vol] 16 mg/dL Normal - [facility] Comment on above: Performed By: #### 7 600, 10840 #### [facility]-[place] [address] [place] , [address] [place] [address] Menswear Salesperson: Francisco Herbert MD Urea nitrogen/Creatinin e [Mass ratio] NOT APPLICABLE Normal - [facility] Comment on above: Performed By: #### 7 600, 86987 #### [facility] , [address] [place] [address] Menswear Salesperson: Francisco Herbert MD LIPID PANEL, STANDARD 09-30 Cholesterol [Mass/Vol] 180 mg/dL Normal <200 [facility] Comment on above: Performed By: #### 7 600, 94308 #### [facility]-[address], [address] [place] [address] Menswear Salesperson: Francisco Herbert MD Cholesterol in HDL [Mass/Vol] 43 mg/dL Low > OR = 50 [facility] Comment on above: Performed By: #### 7 600, 85694 #### [facility]-[address], [address] [place] [address] Menswear Salesperson: Francisco Herbert MD Cholesterol in LDL [Mass/Vol] 106 mg/dL (calc) High [facility] Comment on above: Result Comment: Refe rence range: <100 Desirable range <100 mg/dL for primary prevention; <70 mg/dL for patients with CHD or diabetic patients with > or = 2 CHD risk factors. LDL-C is now calculated using the Hao calculation, which is a validated novel method providing better accuracy than the Friedewald equation in the estimation of LDL-C. Jerry SS et al. BARBARA. 2013;310(19): 6988-1668 (http://education.Movellas.Koality/faq/EAW016) Performed By: #### 7 600, 92704 #### [facility]-[address], [address] [place] [address] Menswear Salesperson: Francisco Herbert MD Cholesterol.total/ Cholesterol in HDL [Mass ratio] 4.2 (calc) Normal <5.0 [facility] Comment on above: Performed By: #### 7 600, 57794 #### [facility]-[address], [address] [place] [address] Menswear Salesperson: Francisco Herbert MD NON HDL CHOLESTEROL 137 mg/dL (calc) High <130 [facility] Comment on above: Result Comment: For patients with diabetes plus 1 major ASCVD risk factor, treating to a non-HDL-C goal of <100 mg/dL (LDL-C of <70 mg/dL) is considered a therapeutic option. Performed By: #### 7 600, 49560 #### [facility]-[address], [address] [place] [address] Menswear Salesperson: Francisco Herbert MD Triglyceride [Mass/Vol] 194 mg/dL High <150 [facility] Comment on above: Performed By: #### 7 600, 56359 #### [facility]-[address], [address] [place] [address] Menswear Salesperson: Francisco Herbert MD CBC without Diffon 8 Erythrocyte distribution width Auto Ratio (RBC) 14.6 % Normal 11.1-15.3 [facility] Comment on above: Order Comment: nhc Performed By: #### C BC ####[id number] [place] [address] 11745 Hematocrit Auto Volume Fraction (Bld) 38.6 % Normal 34.6-45.0 [facility] Comment on above: Order Comment: nhc Performed By: #### C BC ####[facility] [place] [address] 37631 Hemoglobin mass conc (Bld) 13.3 g/dL Normal 11.5-15.5 [facility] Comment on above: Order Comment: nhc Performed By: #### C BC ####[id number] [address] [place] [address] MCH Auto Entitic mass (RBC) 31.1 pg Normal 27.2-33.6 [facility] Comment on above: Order Comment: nhc Performed By: #### C BC ####[place] [address] MCHC Auto mass conc (RBC) 34.5 g/dL Normal 32.9-35.3 [facility] Comment on above: Order Comment: nhc Performed By: #### C BC ####[place] [address] MCV Auto Entitic volume (RBC) 90.1 fL Normal 81.3-96.7 [facility] Comment on above: Order Comment: nhc Performed By: #### C BC ####[place] [address] Platelet mean volume Auto Entitic volume (Bld) 8.9 fL Normal 6.4-10.0 [facility] Comment on above: Order Comment: nhc Performed By: #### C BC ####[place] [address] Platelets Auto #/vol (Bld) 224 x(10)3/cumm Normal 138-367 [facility] Comment on above: Order Comment: nhc Performed By: #### C BC ####[place] [address] RBC Auto #/vol (Bld) 4.29 X(10)6/cumm Normal 3.90-5.10 [facility] Comment on above: Order Comment: nhc Performed By: #### C BC ####[place] [id number] WBC Auto #/vol (Bld) 6.4 x(10)3/cumm Normal 3.6-10.3 [facility] Comment on above: Order Comment: nhc Performed By: #### C BC ####[place] [address] Comprehensive Metabolic Pane morgan 03-13-2018 Albumin mass conc 4.6 g/dL Normal 3.4-5.0 [facility] Comment on above: Order Comment: nhc Performed By: #### C RPR, CMP ####[address] [place], [place] [address] ALP enzyme act/vol 55 U/L Normal 45-117 [facility] Comment on above: Order Comment: nhc Performed By: #### C RPR, CMP ####[facility] [place] [address] ALT enzyme act/vol 28 U/L Normal 12-78 [facility] Comment on above: Order Comment: nhc Performed By: #### C RPR, CMP ####[facility] [place] [address] Anion gap 3 molar conc 9 mmol/L Normal [facility] Comment on above: Order Comment: nhc Performed By: #### C RPR, CMP ####[facility] [place] [address] AST enzyme act/vol 14 U/L Low 15-37 [facility] Comment on above: Order Comment: nhc Performed By: #### C RPR, CMP ####[facility] [place] [address] Bili, Total 0.3 mg/dL Normal 0.2-1.0 [facility] Comment on above: Order Comment: nhc Performed By: #### C RPR, CMP ####[facility] [place] [address] C02 27 mmol/L Normal 21-32 [facility] Comment on above: Order Comment: nhc Performed By: #### C RPR, CMP ####[facility] [place] [address] Calcium mass conc 9.1 mg/dL Normal 8.5-10.1 [facility] Comment on above: Order Comment: nhc Performed By: #### C RPR, CMP ####[facility] [place] [address] Chloride molar conc 103 mmol/L Normal 98-107 [facility] Comment on above: Order Comment: nhc Performed By: #### C RPR, CMP ####[facility] [place] [address] Creatinine mass conc 0.81 mg/dL Normal 0.60-1.30 [facility] Comment on above: Order Comment: nhc Performed By: #### C RPR, CMP ####[address] [address] eGFR -Amer >60 Normal >=60 [facility] Comment on above: Order Comment: nhc Performed By: #### C RPR, CMP ####[address] [address] GFR/1.73 sq M predicted among non-blacks MDRD vol rate/area (S/P/Bld) mL/min/{1.73_m2} Normal >=60 [facility] Comment on above: Order Comment: nhc Performed By: #### C RPR, CMP ####[address] [address] Glucose mass conc 109 mg/dL High 74-106 [facility] Comment on above: Order Comment: nhc Performed By: #### C RPR, CMP ####[address] [address] Potassium molar conc 4.2 mmol/L Normal 3.5-5.1 [facility] Comment on above: Order Comment: nhc Performed By: #### C RPR, CMP ####[address] [address] Protein mass conc 7.9 g/dL Normal 6.4-8.2 [facility] Comment on above: Order Comment: nhc Performed By: #### C RPR, CMP ####[address] [address] Sodium molar conc 139 mmol/L Normal 136-145 [facility] Comment on above: Order Comment: nhc Performed By: #### C RPR, CMP ####[address] [address] Urea nitrogen mass conc 11 mg/dL Normal 7-18 [facility] Comment on above: Order Comment: nhc Performed By: #### C RPR, CMP ####[address] [address] Sed Rate - Dongergrenon 11-1 Sed Rate 8 mm/hr Normal 0-20 [facility] Comment on above: Order Comment: nhc Performed By: #### C RPR, CMP ####[address] [address] ANAon 02-06-2018 Additional Testing SEE BELOW Normal [facility] Comment on above: Result Comment: Not indicatedTest Performed by [facility],[employer],[address] [place] [address] 64[address]Mmzgfizdariela Angel M.D., Ph.D., Director of [phone], [facility] [id number] Performed By: #### A NA ####[address] [address] IDANIA Screen, IFA Negative Normal Negative [facility] Comment on above: Result Comment: IDANIA IFA is a first line screen for detecting thepresence of up to approximately 150 autoantibodies invarious autoimmune diseases. A negative IDANIA IFA resultsuggests IDANIA-associated autoimmune diseases are notpresent at this time.Visit Physician FAQs for interpretation of allantibodies in the [place], prevalence, and associationwith diseases at:http://education.[email or web address]/faq/[email or web address] Performed By: #### A NA ####[address] [address] CCP IgG Abon 02-06-2018 CCP Antibodies IgG/IgA >250 High 0-19 [facility] Comment on above: Order Comment: Perfo rmed at: BN - [facility] [address] [id number] Director: Anshul Mojica MD, Phone: [phone] Result Comment: Nega tive <20Weak positive 20 - 39Moderate positive 40 - 59Strong positive >59 Performed By: #### C CPIGG ####[facility] RESULTS Hepatitis C Antibodyon 02-06 Additional Testing SEE BELOW Normal [facility] Comment on above: Result Comment: Not indicatedTest Performed by [employer], [employer],[address] [place] [address] 15708ZcitoiaDequan Angel M.D., Ph.D., Director of [phone], CLIA [id number] Performed By: #### H EPCAB ####[address] [address] Hepatitis C Antibody Nonreactive Normal [facility] Comment on above: Performed By: #### H EPCAB ####[address] [address] Signal to Cutoff 0.05 ratio Normal <1.00 [facility] Comment on above: Result Comment: HCV antibody was Nonreactive. There is no laboratoryevidence of HCV infection.In most cases, no further action is required. However,if recent HCV exposure is suspected, a test for HCVRNA (test code 58513) is suggested.For additional information please refer tohttp://education.[email or web address]/faq/[email or web address](This link is being provided for informational/educational purposes only.) Performed By: #### H EPCAB ####[address] [address] Hepatitis B Core Ab IgMon Hepatitis B Core Ab IgM Nonreactive Normal [facility] Comment on above: Result Comment: Test Performed by [facility],[address] [place] [address] 24[address]DfmbbhnDequan Angel M.D., Ph.D., Director of [phone], CLIA [id number] Performed By: #### B COREM ####[address] [address] Hepatitis B Surface Agon Confirmation SEE BELOW Normal [facility] Comment on above: Result Comment: Not required according tothe current package insert.Test Performed by [facility],[address] [place] [id number] Angel M.D., Ph.D., Director of [phone], KAREEN [id number] Performed By: #### H BSAG ####[address] [address] Hepatitis B Surface Ag Nonreactive Normal Nonreactive [facility] Comment on above: Performed By: #### H BSAG ####[address] [address] C-Reactive Proteinon 018 CRP mass conc mg/L Normal <=2.99 [facility] Comment on above: Performed By: #### C RPR, CMP ####[address] [address] CBC with Diffon 02-01-2018 Basophils Auto #/vol (Bld) 0.1 x(10)3/cumm Normal 0.0-0.1 [facility] Comment on above: Performed By: #### C BCDIFF ####[place] [id number] Basophils/100 WBC Auto (Bld) 0.8 % Normal 0.0-1.0 [facility] Comment on above: Performed By: #### C BCDIFF ####[address] [address] Eosinophils Auto #/vol (Bld) 0.2 x(10)3/cumm Normal 0.0-0.4 [facility] Comment on above: Performed By: #### C BCDIFF ####[place] [id number] Eosinophils/100 WBC Auto (Bld) 2.7 % Normal 0.0-6.1 [facility] Comment on above: Performed By: #### C BCDIFF ####[place] [id number] Erythrocyte distribution width Auto Ratio (RBC) 14.3 % Normal 11.1-15.3 [facility] Comment on above: Performed By: #### C BCDIFF ####[place] [id number] Hematocrit Auto Volume Fraction (Bld) 40.2 % Normal 34.6-45.0 [facility] Comment on above: Performed By: #### C BCDIFF ####[place] [id number] Hemoglobin mass conc (Bld) 13.6 g/dL Normal 11.5-15.5 [facility] Comment on above: Performed By: #### C BCDIFF ####[place] [id number] Lymphocytes Auto #/vol (Bld) 1.8 x(10)3/cumm Normal 0.8-2.9 [facility] Comment on above: Performed By: #### C BCDIFF ####[place] [address] Lymphocytes/100 WBC Auto (Bld) 21.2 % Normal 12.2-42.6 [facility] Comment on above: Performed By: #### C BCDIFF ####[place] [address] MCH Auto Entitic mass (RBC) 30.1 pg Normal 27.2-33.6 [facility] Comment on above: Performed By: #### C BCDIFF ####[place] [address] MCHC Auto mass conc (RBC) 33.8 g/dL Normal 32.9-35.3 [facility] Comment on above: Performed By: #### C BCDIFF ####[place] [id number] MCV Auto Entitic volume (RBC) 89.1 fL Normal 81.3-96.7 [facility] Comment on above: Performed By: #### C BCDIFF ####[place] [id number] Monocytes Auto #/vol (Bld) 0.7 x(10)3/cumm Normal 0.2-0.8 [facility] Comment on above: Performed By: #### C BCDIFF ####[place] [id number] Monocytes/100 WBC Auto (Bld) 8.6 % Normal 3.3-11.6 [facility] Comment on above: Performed By: #### C BCDIFF ####[facility] [place] [address] Neutrophils Auto #/vol (Bld) 5.7 x(10)3/cumm Normal 1.3-7.4 [facility] Comment on above: Performed By: #### C BCDIFF ####[facility] [place] [address] Platelet mean volume Auto Entitic volume (Bld) 9.1 fL Normal 6.4-10.0 [facility] Comment on above: Performed By: #### C BCDIFF ####[address] [address] Platelets Auto #/vol (Bld) 199 x(10)3/cumm Normal 138-367 [facility] Comment on above: Performed By: #### C BCDIFF ####[facility] [place] [address] Plt Morph Normal [facility] Comment on above: Performed By: #### C BCDIFF ####[address] [address] RBC Auto #/vol (Bld) 4.51 X(10)6/cumm Normal 3.90-5.10 [facility] Comment on above: Performed By: #### C BCDIFF ####[address] [address] RBC Morph cont Normal [facility] Comment on above: Performed By: #### C BCDIFF ####[address] [address] RBC morphology finding Nom (Bld) Normal [facility] Comment on above: Performed By: #### C BCDIFF ####[address] [address] Segmented neutrophils/100 WBC Manual cnt (Bld) 66.7 % Normal 44.9-78.8 [facility] Comment on above: Performed By: #### C BCDIFF ####[place] [address] WBC Auto #/vol (Bld) 8.5 x(10)3/cumm Normal 3.6-10.3 [facility] Comment on above: Performed By: #### C BCDIFF ####[place] [address] WBC Morph Normal [facility] Comment on above: Performed By: #### C BCDIFF ####[place] [address] Comprehensive Metabolic Pane morgan 02-01-2018 Albumin mass conc 5.0 g/dL Normal 3.4-5.0 [facility] Comment on above: Performed By: #### C RPR, CMP ####[place] [address] ALP enzyme act/vol 54 U/L Normal 45-117 [facility] Comment on above: Performed By: #### C RPR, CMP ####[place] [address] ALT enzyme act/vol 26 U/L Normal 12-78 [facility] Comment on above: Performed By: #### C RPR, CMP ####[place] [address] Anion gap 3 molar conc 8 mmol/L Normal [facility] Comment on above: Performed By: #### C RPR, CMP ####[place] [address] AST enzyme act/vol 12 U/L Low 15-37 [facility] Comment on above: Performed By: #### C RPR, CMP ####[place] [address] Bili, Total 0.3 mg/dL Normal 0.2-1.0 [facility] Comment on above: Performed By: #### C RPR, CMP ####[place] [id number] C02 26 mmol/L Normal 21-32 [facility] Comment on above: Performed By: #### C RPR, CMP ####[address] [address] Calcium mass conc 9.5 mg/dL Normal 8.5-10.1 [facility] Comment on above: Performed By: #### C RPR, CMP ####[place] [id number] Chloride molar conc 103 mmol/L Normal 98-107 [facility] Comment on above: Performed By: #### C RPR, CMP ####[place] [id number] Creatinine mass conc 0.98 mg/dL Normal 0.60-1.30 [facility] Comment on above: Performed By: #### C RPR, CMP ####[place] [id number] eGFR -Amer >60 Normal >=60 [facility] Comment on above: Performed By: #### C RPR, CMP ####[address] [address] GFR/1.73 sq M predicted among non-blacks MDRD vol rate/area (S/P/Bld) mL/min/{1.73_m2} Normal >=60 [facility] Comment on above: Performed By: #### C RPR, CMP ####[place] [id number] Glucose mass conc 97 mg/dL Normal 74-106 [facility] Comment on above: Performed By: #### C RPR, CMP ####[place] [id number] Potassium molar conc 4.3 mmol/L Normal 3.5-5.1 [facility] Comment on above: Performed By: #### C RPR, CMP ####[place] [id number] Protein mass conc 8.4 g/dL High 6.4-8.2 [facility] Comment on above: Performed By: #### C RPR, CMP ####[facility] [place] [address] Sodium molar conc 137 mmol/L Normal 136-145 [facility] Comment on above: Performed By: #### C RPR, CMP ####[facility] [place] [address] Urea nitrogen mass conc 14 mg/dL Normal 7-18 [facility] Comment on above: Performed By: #### C RPR, CMP ####[facility] [place] [address] Sed Rate - Westergrenon 10-0 Sed Rate 11 mm/hr Normal 0-20 [facility] Comment on above: Performed By: #### E SR ####[facility] [address] [address] Vital Signs Date Time Vital Sign Value Performing Clinician Monica machuca 11-05-2024 09:55-0400 Body mass index (BMI) [Ratio] 32.08 kg/m2 Josie Grace MD Work Phone: [facility] 11-05-2024 09:55-0400 Body weight 83.46 kg Josie Grace MD Work Phone: [facility] 11-05-2024 09:55-0400 Diastolic blood pressure 82 mm[Hg] Josie Grace MD Work Phone: [facility] 11-05-2024 09:55-0400 Systolic blood pressure 122 mm[Hg] Josie Grace MD Work Phone: [facility] Encounters Encounter Date Encounter Type Care Provider Facility Start: 11-28-2024 ambulatory [facility] Facility :[facility] Start: 11-27-2024 Encounter for other preprocedural examination Josie Grace [facility] Start: 11-20-2024 End: 11-20-2024 Telemedicine consultation with patient Josie Grace MD Work Phone: OB/Gynecology Start: 11-20-2024 End: 11-20-2024 Admission to same day surgery center Josie Grace MD Work Phone: OB/Gynecology Comment on above: Surgery Start: 11-20-2024 End: 11-20-2024 ambulatory Josie Grace MD Work Phone: OB/Gynecology Comment on above: Menorrhagia with reg ular cycle (Primary Dx); Dysmenorrhea; Ovarian cyst, left; Family history of ovarian cancer; Encounter for sterilization; Uterine scar from previous delivery; Endometrial polyp Start: 11-08-2024 End: 11-08-2024 Patient encounter procedure [facility] Start: 11-08-2024 End: 11-08-2024 ambulatory [employer] Work Phone: OB/Gynecology Start: 11-05-2024 End: 11-05-2024 Patient encounter procedure Josie Grace MD Work Phone: OB/Gynecology Comment on above: Menorrhagia with reg ular cycle (Primary Dx); Dysmenorrhea; Ovarian cyst, left; Family history of ovarian cancer Start: 11-05-2024 End: 11-05-2024 ambulatory JOSIE GRACE Facility:[facility] Start: 08-23-2024 End: 08-23-2024 ambulatory [facility] Start: 08-20-2024 End: 08-20-2024 ambulatory [facility] Start: 08-08-2024 End: 08-08-2024 ambulatory [facility] Start: 08-08-2024 Encounter for gynecological examination (general) (routine) without abnormal findings [facility] Start: 07-31-2024 End: 07-31-2024 ambulatory [facility] Start: 01-27-2024 End: 01-27-2024 ambulatory [facility] Start: 03-13-2018 End: 03-14-2018 Patient encounter procedure [facility] Start: 02-01-2018 End: 02-02-2018 Patient encounter procedure [facility] Procedures Date Procedure Procedure Detail Performing Clinician Start: 11-08-2024 Us pelvic nonobstetr ic real-time image complete Josie Grace MD Work Phone: Start: 11-05-2024 UA DIP,URINE HCG (POC) Josie Grace MD Work Phone: Start: 03-25-2013 End: 11-26-2013 H/O: section History of Josie Womack Work Phone: Plan of Treatment Date Care Activity Detail Author Start: 08-08-2029 Screening for malign ant neoplasm of cervix Cervical Cancer Screening [facility] Start: 12-30-2024 Influenza vaccination Influenza Vacc ine (#1) [facility] Start: 11-20-2024 End: 11-20-2024 Follow-up encounter 11/20/2024 2:50 PM EDT [facility] OB/Gynecology [address] [place], [place] [id number] Josie Grace MD [address] [place], [place] [id number] Follow up OB/Gynecology Comment on above: Follow up Start: 11-08-2024 End: 11-08-2024 ambulatory 11/08/2024 8:00 AM EDT Procedure OB/Gynecology [address] [place] [address] Remote, [employer] [address] [place] [address] Menorrhagia with regular cycle [N92.0]; Dysmenorrhea [N94.6]; Ovarian cyst, left [N83.202] OB/Gynecology Comment on above: Menorrhagia with reg ular cycle [N92.0]; Dysmenorrhea [N94.6]; Ovarian cyst, left [N83.202] Start: 11-05-2024 End: 11-05-2025 US Pelvis PELVIC US [facility] Routine Menorrhagia with regular cycle Dysmenorrhea Ovarian cyst, left Expected: 11/05/2024, Expires: 11/05/2025 [facility] Comment on above: Expected: 11/05/2024 , Expires: 11/05/2025 Start: 12-31-2023 Covid-19 Vaccine ( season) Covid-19 Vaccine ( season) [facility] Start: 08-30-2023 Urine microalbumin profile DTaP,Tdap,Td Vaccine (2 - Td or Tdap) [facility] Start: 2022 Diabetes Screening Diabetes Screenin g [facility] Start: 2022 Lipid panel Lipid Screening [facility] Start: 2022 Screening for malign ant neoplasm of colon [facility] Start: 07-14-2021 Screening for malign ant neoplasm of cervix Cervical Cancer Screening [facility] Start: 2017 Screening for malign ant neoplasm of breast Mammogram Screening [facility] Start: 1996 Hepatitis B Vaccine (1 of 3 - 19+ 3-dose series) Hepatitis B Vaccine (1 of 3 - 19+ 3-dose series) [facility] Start: 10-16-1995 Anxiety Screening Anxiety Screening [facility] Start: 10-16-1995 Depression Screening Depression Scre ening [facility] Start: 10-16-1995 Hepatitis C screening Hepatitis C Sc reening [facility] Start: 10-16-1995 HIV screening HIV Screening [facility] Endometrial bx w/wo endocervix bx w/o dilat spx ENDOMETRIAL BIOPSY Procedures Routine Menorrhagia with regular cycle Dysmenorrhea Ovarian cyst, left Ordered: 11/05/2024 [facility] Work Phone: Comment on above: Ordered: 11/05/2024 Tissue Pathology bio psy report SURGICAL PATHOLOGY Lab Routine Menorrhagia with regular cycle Dysmenorrhea Ovarian cyst, left 11/05/2024 2:13 PM EDT [facility] Immunizations Immunization Date Immunization Notes Care Provider Fa [facility] 02-25-2014 influenza, seasonal, injectable Josie Grace MD Work Phone: [facility] 02-25-2014 influenza virus vaccine, unspecified formulation Josie Grace MD Work Phone: [facility] 08-29-2013 RHO(D) immune globul in- IV or IM Josie Grace MD Work Phone: [facility] 08-29-2013 tetanus toxoid, redu karen diphtheria toxoid, and acellular pertussis vaccine, adsorbed Josie Grace MD Work Phone: [facility] 05-03-2013 RHO(D) immune globul in- IV or IM Josie Grace MD Work Phone: [facility] Work Phone: 03-25-2013 influenza virus vaccine, unspecified formulation Josie Grace MD Work Phone: [facility] 04-06-2007 RHO(D) immune globul in- IV or IM Josie Grace MD Work Phone: [facility] Payers Date Payer Category Payer Self-pay 2023 Private Health Insurance [id number] [id number] 2023 Unknown [id number] 1975 Unknown [id number] 1977 Unknown [id number] 1977 Unknown [id number] .[id number] 1977 Unknown [id number] .[id number] 1977 Unknown [id number] .[id number] 65 1977 Unknown [id number] .[id number] 1977 Unknown [id number] 1959 Private Health Insurance [id number] Unknown [id number] Social History Date Type Detail Facility Start: 03-18-2011 Tobacco smoking stat [email or web address]IS Never smoked tobacco [facility] Start: 03-18-2011 Tobacco use and exposure Smoke less tobacco non-user [facility] Start: 11-05-2024 End: 11-20-2024 Alcoholic beverage intake Current drinker of alcohol (finding) [facility] Start: 11-05-2024 End: 11-20-2024 History of Social function [facility] Start: 11-05-2024 End: 11-20-2024 Tobacco use panel [facility] National Score (1-10 0), lower number is lower risk 84 [facility] Start: 03-25-2013 Alcohol Comment Rarely,NOT WHILE PRE GNANT [facility] Start: 1975 Sex assigned at Not on file C [facility] Functional Status Date Assessment Result Facility 01-17-2014 Are you deaf, or do you have serious difficulty hearing No 01/17/2014 10:01 AM Lillian Owens Ma [facility] 01-17-2014 Are you blind, or do you have serious difficulty seeing, even when wearing glasses No 01/17/2014 10:01 AM Lillian Owens Ma [facility] 01-17-2014 Do you have serious difficulty walking or climbing stairs No 01/17/2014 10:01 AM Lillian Owens Ma [facility] 01-17-2014 Do you have difficul ty dressing or bathing No 01/17/2014 10:01 AM Lillian Owens Ma [facility] 01-17-2014 Because of a physica l, mental, or emotional condition, do you have difficulty doing errands alone such as visiting a physician's office or shopping No 01/17/2014 10:01 AM Lillian Owens Ma [facility] Mental Status Date Assessment Result Facility 01-17-2014 Because of a physica l, mental, or emotional condition, do you have serious difficulty concentrating, remembering, or making decisions No 01/17/2014 10:01 AM EDT Masters Lillian Ness [facility] Clinical Notes 11-05-2024 to 11-21-2024 Josie Grace MD - 11/20/2024 4:31 PM EDJosie Perez MD - 11/20/2024 4:31 PM EDTTelephone Encounter - Mary Camarena LPN - 11/20/2024 4:06 PM EDTPatient Instructions Note Date & Type Note Facility 11-21-2024 Note [facility] Medical Records Department [address] [place] [address] History Physical Exam 11/21/24 1541 MR#: [id number] Acct: [id number] Name: RADHA MORALES Rep #: [id number] : 1975 49 From: Josie Grace MD PCP: Varghese Barboza PA-C Status:PRE [facility] [place] [facility] Location: [facility] [place] History and Physical Date of Admission: 11/28/24 HPI: The patient is a 49 year old female presenting for pre-operative visit. She is scheduled for Laparosocpy with LSO, right salpingectomy, hysteroscopy D C with IUD insertion for menorrhagia, pelvic pain, left ovarian cyst and paratubal cyst and sterilization on 11/28/24. Procedure discussed along with risks, benefits and complications. Other alternatives discussed for management. Consent form signed? no. ? PAST MEDICAL HISTORY PAST MEDICAL HISTORYDiagnosisDate???Anemia? 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 PAST SURGICAL HISTORY PAST SURGICAL HISTORYProcedureLateralityDate??? DELIVERY ONLY???05/20/2007???, low cervical??? DELIVERY ONLY???11/14/2013???, low transverse???EXCISION PILONIDAL CYST/SINUS SIMPLE?HERNIA REPAIR HX???2018???abdominal recti repair and tummy tuck at same time???LIG/TRNSXJ FLP TUBE ABDL/VAG APPR UNI/BI???11/14/2013???Tubal ligation???PAST SURGICAL HISTORY OF?breast reduction???PAST SURGICAL HISTORY OF?RIGHT ELBOW ? CURRENT MEDICATIONS Current Outpatient MedicationsMedicationSigDispenseR efill???meloxicam (MOBIC) 15 mg tabletTake 15 mg by mouth.?spironolactone (ALDACTONE) 50 mg tabletTake 50 mg by mouth once daily.?No current facility-administered medications for this visit. ? ALLERGIES: Patient has no known allergies. ??? PERSONAL HISTORY: SOCIAL HISTORY Social History???Tobacco Use???Smoking status:Never???Smokeless tobacco:NeverVaping Use???Vaping status:Never UsedSubstance Use Topics???Alcohol use:Yes?Comment: Rarely,NOT WHILE ???Drug use:No ??? FAMILY HISTORY: FAMILY HISTORY FAMILY HISTORY ProblemRelationAge of Onset???ThyroidMother?other (Uterine problems)Mother? Needed D C???HypertensionFather?other (ovarian cancer)Maternal [id number] - 69???HeartMaternal Grandfather?HypertensionPate rnal Grandmother?HeartPaternal Grandfather?DiabetesPaternal Uncle? REVIEW OF SYMPTOMS: GENERAL: denies fevers or chills ENDOCRINOLOGY: has not been on steroids Cardiology : denies palpitations or chest pain Respiratory: denies SOB or cough Hematology: denies history of prolonged bleeding or easy bruising or VTE Allergy: Denies history of personal or family history of allergy to anesthesia ??? PHYSICAL EXAMINATION: ??? VITALS: Last menstrual period 10/31/2024. ??? GENERAL: The patient is well nourished, well hydrated in no acute distress. , The patient is oriented to time, place, and person. ??? pelvic US 11/08/24: Indication menorrhagia with regular cycle, Dysmenorrhea, ovarian cyst left Impression Uterus 114 x 66 x 57 mm and axial Myometrium contains a notable scar defect measuring 7 mm deep by 5 mm long, there is 6 mm of residual myometrium and 18 mm of adjacent myometrium Endometrium 7 mm Cervix normal with nabothian cysts Right ovary 25 x 42 x 24 mm and normal O RADS one Left ovary 79 x 46 x 50 mm, there is a 52 x 46 x 52 mm unilocular simple cyst, O RADS two, recommend repeat imaging in 12 months. Additionally there is a 30 x 30 x ???38 mm bilocular cyst, O RADS two, recommend repeat imaging in 6 months. Almost certainly benign Recommendations O RADS two lesions in the left ovary. Recommend follow-up imaging in 6 months scar defect noted ? IMPRESSION: left ovarian cyst and paratubal cyst, sterilization and menorrhagia with regular cycle ??? PLAN: The risks/benefits/alternatives and personal involved for the planned Laparosocpy with LSO, right salpingectomy, hysteroscopy D C with polyp resection and IUD insertion for menorrhagia,were reviewed with the patient. Her questions were answered to her satisfaction and she desires to proceed. Consent was signed. I reviewed with her postop instructions and expectations. ? I have reviewed and updated past medical and surgical history, medications and allergies Assessment Plan Assessment/Plan (1) Left ovarian cyst: (2) Sterilization: (3) Menorrhagia with regular cycle: (4) Endometrial polyp: (5) Encounter for IUD insertion: 11/21/24 [id number] Cosigner Signature (if applicable): CC: NOEL Barboza; Dr. Josie Grace MD Signed [facility] 11-20-2024 History and physical note Pre-Op History and Physical HPI: The patient is a 49 year old female presenting for pre-operative visit. She is scheduled for Laparosocpy with LSO, right salpingectomy, hysteroscopy D&C with IUD insertion for menorrhagia, pelvic pain, left ovarian cyst and paratubal cyst and sterilization on 11/28/24. Procedure discussed along with risks, benefits and complications. Other alternatives discussed for management. Consent form signed? Yes. 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 spironolactone (ALDACTONE) 50 mg tablet Take 50 mg by mouth once daily. No current facility-administered medications for this visit. ALLERGIES: Patient has no known allergies. PERSONAL HISTORY: Social History Tobacco Use Smoking status: Never Smokeless tobacco: Never Vaping Use Vaping status: Never Used Substance Use Topics Alcohol use: Yes Comment: Rarely,NOT WHILE Drug use: No FAMILY HISTORY: FAMILY HISTORY Problem Relation Age of Onset Thyroid Mother other (Uterine problems) Mother Needed D&C Hypertension Father other (ovarian cancer) Maternal Grandmother 60 - 69 Heart Maternal Grandfather Hypertension Paternal Grandmother Heart Paternal Grandfather Diabetes Paternal Uncle REVIEW OF SYMPTOMS: GENERAL: denies fevers or chills ENDOCRINOLOGY: has not been on steroids Cardiology : denies palpitations or chest pain Respiratory: denies SOB or cough Hematology: denies history of prolonged bleeding or easy bruising or VTE Allergy: Denies history of personal or family history of allergy to anesthesia PHYSICAL EXAMINATION: VITALS: Last menstrual period 10/31/2024. GENERAL: The patient is well nourished, well hydrated in no acute distress. , The patient is oriented to time, place, and person. pelvic US 11/08/24: Indication menorrhagia with regular cycle, Dysmenorrhea, ovarian cyst left Impression Uterus 114 x 66 x 57 mm and axial Myometrium contains a notable scar defect measuring 7 mm deep by 5 mm long, there is 6 mm of residual myometrium and 18 mm of adjacent myometrium Endometrium 7 mm Cervix normal with nabothian cysts Right ovary 25 x 42 x 24 mm and normal O RADS one Left ovary 79 x 46 x 50 mm, there is a 52 x 46 x 52 mm unilocular simple cyst, O RADS two, recommend repeat imaging in 12 months. Additionally there is a 30 x 30 x 38 mm bilocular cyst, O RADS two, recommend repeat imaging in 6 months. Almost certainly benign Recommendations O RADS two lesions in the left ovary. Recommend follow-up imaging in 6 months scar defect noted IMPRESSION: left ovarian cyst and paratubal cyst, sterilization and menorrhagia with regular cycle PLAN: The risks/benefits/alternatives and personal involved for the planned Laparosocpy with LSO, right salpingectomy, hysteroscopy D&C with polyp resection and IUD insertion for menorrhagia,were reviewed with the patient. Her questions were answered to her satisfaction and she desires to proceed. Consent was signed. I reviewed with her postop instructions and expectations. I have reviewed and updated past medical and surgical history, medications and allergies Josie Grace M.D. [facility] 11-20-2024 History and physical note Pre-Op History and Physical HPI: The patient is a 49 year old female presenting for pre-operative visit. She is scheduled for Laparosocpy with LSO, right salpingectomy, hysteroscopy D&C with IUD insertion for menorrhagia, pelvic pain, left ovarian cyst and paratubal cyst and sterilization on 11/28/24. Procedure discussed along with risks, benefits and complications. Other alternatives discussed for management. Consent form signed? Yes. 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 spironolactone (ALDACTONE) 50 mg tablet Take 50 mg by mouth once daily. No current facility-administered medications for this visit. ALLERGIES: Patient has no known allergies. PERSONAL HISTORY: Social History Tobacco Use Smoking status: Never Smokeless tobacco: Never Vaping Use Vaping status: Never Used Substance Use Topics Alcohol use: Yes Comment: Rarely,NOT WHILE Drug use: No FAMILY HISTORY: FAMILY HISTORY Problem Relation Age of Onset Thyroid Mother other (Uterine problems) Mother Needed D&C Hypertension Father other (ovarian cancer) Maternal Grandmother 60 - 69 Heart Maternal Grandfather Hypertension Paternal Grandmother Heart Paternal Grandfather Diabetes Paternal Uncle REVIEW OF SYMPTOMS: GENERAL: denies fevers or chills ENDOCRINOLOGY: has not been on steroids Cardiology : denies palpitations or chest pain Respiratory: denies SOB or cough Hematology: denies history of prolonged bleeding or easy bruising or VTE Allergy: Denies history of personal or family history of allergy to anesthesia PHYSICAL EXAMINATION: VITALS: Last menstrual period 10/31/2024. GENERAL: The patient is well nourished, well hydrated in no acute distress. , The patient is oriented to time, place, and person. pelvic US 11/08/24: Indication menorrhagia with regular cycle, Dysmenorrhea, ovarian cyst left Impression Uterus 114 x 66 x 57 mm and axial Myometrium contains a notable scar defect measuring 7 mm deep by 5 mm long, there is 6 mm of residual myometrium and 18 mm of adjacent myometrium Endometrium 7 mm Cervix normal with nabothian cysts Right ovary 25 x 42 x 24 mm and normal O RADS one Left ovary 79 x 46 x 50 mm, there is a 52 x 46 x 52 mm unilocular simple cyst, O RADS two, recommend repeat imaging in 12 months. Additionally there is a 30 x 30 x 38 mm bilocular cyst, O RADS two, recommend repeat imaging in 6 months. Almost certainly benign Recommendations O RADS two lesions in the left ovary. Recommend follow-up imaging in 6 months scar defect noted IMPRESSION: left ovarian cyst and paratubal cyst, sterilization and menorrhagia with regular cycle PLAN: The risks/benefits/alternatives and personal involved for the planned Laparosocpy with LSO, right salpingectomy, hysteroscopy D&C with polyp resection and IUD insertion for menorrhagia,were reviewed with the patient. Her questions were answered to her satisfaction and she desires to proceed. Consent was signed. I reviewed with her postop instructions and expectations. I have reviewed and updated past medical and surgical history, medications and allergies Josie Grace M.D. documented in this encounter [facility] 11-20-2024 Telephone encounter Note Patient having surgery 11/28/2024 [facility] 11-20-2024 Miscellaneous Notes Patient having surgery 11/28/2024 documented in this encounter [facility] 11-20-2024 Note HNO ID: [id number] Author: JOSIE GRACE MD Service: ? Author Type: Physician Type: Progress Notes Filed: 11/21/2024 15:41 Note Text: I have communicated my name and active licensure. The patient's identity and physical location were verified at the time of this visit. Either the patient or their legal customer care representative has been informed of the risks and benefits of -- and alternatives to -- treatment through a remote evaluation and consents to proceed with the evaluation remotely. Subjective Radha Morales is a 49 year old female. c/o heavy menses and some pelvic pain, f/u EMB and ovarian cyst Objective LMP 10/31/2024 (Exact Date) GENERAL: alert and appropriate, in no distress, well-hydrated, well nourished, and happy, smiling, interactive Assessment AND Plan Menorrhagia with regular cycle Dysmenorrhea r/b/a to hysteroscopy DANDC w/ polyp resection if present and IUD insertion, desires to proceed. Ovarian cyst, left Family history of ovarian cancer d/w her bilateral salpingectomy is risk reduction, desires this Encounter for sterilization d/w her bilateral salpingectomy will be permanent sterilization, does not desire future child bearing Uterine scar from previous delivery defect noted D/w her with this I would not recommend endometrial ablation, concern about perforation or thermal injury to other internal organs Endometrial polyp decision for surgery today. See HANDP Visit was conducted via [employer] Provider Location: [facility] Patient Location: Patient Home or Place of Residence [facility] 11-20-2024 History of Present illness Narrative I have communicated my name and active licensure. The patient's identity and physical location were verified at the time of this visit. Either the patient or their legal customer care representative has been informed of the risks and benefits of -- and alternatives to -- treatment through a remote evaluation and consents to proceed with the evaluation remotely. Subjective Radha Morales is a 49 year old female. c/o heavy menses and some pelvic pain, f/u EMB and ovarian cyst Objective LMP 10/31/2024 (Exact Date) GENERAL: alert and appropriate, in no distress, well-hydrated, well nourished, and happy, smiling, interactive Assessment & Plan Menorrhagia with regular cycle Dysmenorrhea r/b/a to hysteroscopy D&C w/ polyp resection if present and IUD insertion, desires to proceed. Ovarian cyst, left Family history of ovarian cancer d/w her bilateral salpingectomy is risk reduction, desires this Encounter for sterilization d/w her bilateral salpingectomy will be permanent sterilization, does not desire future child bearing Uterine scar from previous delivery defect noted D/w her with this I would not recommend endometrial ablation, concern about perforation or thermal injury to other internal organs Endometrial polyp decision for surgery today. See H&P Visit was conducted via [employer] Provider Location: [facility] Patient Location: Patient Home or Place of Residence documented in this encounter [facility] 11-08-2024 Note HNO ID: [id number] Author: GINNY LANDERS MD Service: ? Author Type: Physician Type: Progress Notes Filed: 11/08/2024 12:39 Note Text: Pelvic ultrasound was performed on Radha. Please see imaging tab for documentation and results. Ginny Landers MD OBGYN Staff Physician SIGNATURE: Ginny Landers MD PATIENT NAME: Radha Morales DATE: November 08, 2024 TIME: 12:39 PM PAGER/CONTACT #: Pager OBGYN Call Schedule: [facility] 11-08-2024 History of Present illness Narrative Pelvic ultrasound was performed on Radha. Please see imaging tab for documentation and results. Ginny Landers MD OBGYN Staff Physician SIGNATURE: Ginny Landers MD PATIENT NAME: Radha Morales DATE: November 08, 2024 TIME: 12:39 PM PAGER/CONTACT #: Pager OBGYN Call Schedule: [facility] documented in this encounter [facility] 11-05-2024 Note HNO ID: [id number] Author: JOSIE GRACE MD Service: ? Author Type: Physician Type: Progress Notes Filed: 11/05/2024 12:59 Note Text: Obstetrics and Gynecology [place] [facility] Visit Subjective Recording using [employer] software for draft documentation of the visit was discussed with the patient/authorized customer care representative; all questions welcomed and answered. Patient/authorized customer care representative agreed to proceed CHIEF COMPLAINT: The patient is a 49-year-old female presenting for evaluation of a 7 cm ovarian cyst and associated pelvic pain. HPI: Pelvic Pain - Reports a constant dull pain on the left side, described as a constant dull pain with a sensation of pressure, particularly noticeable during certain movements. Present for several months. - Pain is exacerbated during menstruation and sometimes during bowel movements and intercourse. - Denies any sensation of something hanging down low in the vagina or any issues with urinary incontinence. - Denies any changes in sexual partners or concerns about STDs. - Denies any hot flashes, but reports some vaginal dryness. Ovarian Cyst - Recently evaluated by her primary care provider due to pelvic pain; a 7 cm ovarian cyst was discovered on ultrasound. - Pap smear -normal this year per her report - Referred to gynecology for further evaluation and management of the cyst. Menstrual Irregularities - Reports regular menstrual cycles occurring every 3.5 to 5 weeks, lasting approximately 4 days. 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 - Reports heavy bleeding on the heaviest days, requiring changing protection every 1-2 hours, and passing large clots. - Experiences cramping and lower back pain during menstruation, for which she takes Pamprin. - Occasionally experiences nausea as part of PMS symptoms. - Notes post-menstrual spotting, described as a spot of shhh type stuff when wiping. Weight Management - Currently on a GLP-1 medication for about 2 years, resulting in a total weight loss of 40 pounds. - Reports that the weight loss has been slow but steady. - Experiences slower bowel movements since starting the GLP-1 medication, but denies any significant constipation or changes in stool color. - Maintains an active lifestyle Family History of Cancer - Maternal grandmother diagnosed with ovarian cancer in her 60s. - Mother has a history of uterine polyps but no cancer. - No other known family history of cancer on either the maternal or paternal side. HISTORY: OB History Gravida3 Para2 Term1 Preterm1 AB1 Living2 SAB1 IAB0 Ectopic0 Multiple0 Live Births2 Sweeper Brush Maker Machine History LMP: 10/31/2024 (Exact Date), Having periods Age at Menarche: 16 Age at First : Age at Menopause: Sweeper Brush Maker Machine History Comments: Sexual Activity: Yes; Male; BTO w/ c/s Contraception: Tubal Ligation Menstrual Tracking History Flowsheet Row Office Visit from 11/05/2024 in OB/Gynecology Period Cycle (Days) 28 Period Duration (Days) 4 Menstrual Flow Moderate PAST MEDICAL HISTORY Diagnosis Date Anemia A TEENAGER Hypothyroid Infertility, female WITH 1ST Rheumatoid Arthritis Seroma ANTERIOR TO UTERUS , SEE US 03/2011 Trauma LEFT ELBOW FRACTURE 2012 PAST SURGICAL HISTORY Procedure Laterality Date DELIVERY ONLY 05/20/2007 , low cervical DELIVERY ONLY 11/14/2013 , low transverse EXCISION PILONIDAL CYST/SINUS SIMPLE HERNIA REPAIR HX 2018 abdominal recti repair and tummy tuck at same time LIG/TRNSXJ FLP TUBE ABDL/VAG APPR UNI/BI 11/14/2013 Tubal ligation PAST SURGICAL HISTORY OF breast reduction PAST SURGICAL HISTORY OF RIGHT ELBOW FAMILY HISTORY Problem Relation Age of Onset Thyroid Mother other (Uterine problems) Mother Needed DANDC Hypertension Father other (ovarian cancer) Maternal Grandmother 60 - 69 Heart Maternal Grandfather Hypertension Paternal Grandmother Heart Paternal Grandfather Diabetes Paternal Uncle Social History Tobacco Use Smoking status: Never Smokeless tobacco: Never Vaping Use Vaping status: Never Used Substance Use Topics Alcohol use: Yes Comment: Rarely,NOT WHILE Drug use: No Current Outpatient Medications Medication Sig meloxicam (MOBIC) 15 mg tablet Take 15 mg by mouth. spironolactone (ALDACTONE) 50 mg tablet Take 50 mg by mouth once daily. ALPRAZolam (XANAX) 0.5 mg tablet Take 0.5 mg by mouth at bedtime as needed. (Patient not taking: Reported on 11/05/2024) miSOPROStol (CYTOTEC) 200 mcg tablet Take 2 tabs the night before AND 2 tabs the morning of the procedure - vaginally. (Patient not taking: Reported on 11/05/2024) No current facility-administered medications for this visit. ALLERGIES No Known Allergies REVIEW OF SYSTEMS: Constitutional: (+) weight loss Gastrointestinal: (+) nausea, (more content not included)... [facility] 11-05-2024 History of Present illness Narrative Images from the original note were not included. Obstetrics and Gynecology [place] [facility] Visit Subjective Recording using ambient [employer] software for draft documentation of the visit was discussed with the patient/authorized customer care representative; all questions welcomed and answered. Patient/authorized customer care representative agreed to proceed CHIEF COMPLAINT: The patient is a 49-year-old female presenting for evaluation of a 7 cm ovarian cyst and associated pelvic pain. HPI: Pelvic Pain - Reports a constant dull pain on the left side, described as a constant dull pain with a sensation of pressure, particularly noticeable during certain movements. Present for several months. - Pain is exacerbated during menstruation and sometimes during bowel movements and intercourse. - Denies any sensation of something hanging down low in the vagina or any issues with urinary incontinence. - Denies any changes in sexual partners or concerns about STDs. - Denies any hot flashes, but reports some vaginal dryness. Ovarian Cyst - Recently evaluated by her primary care provider due to pelvic pain; a 7 cm ovarian cyst was discovered on ultrasound. - Pap smear -normal this year per her report - Referred to gynecology for further evaluation and management of the cyst. Menstrual Irregularities - Reports regular menstrual cycles occurring every 3.5 to 5 weeks, lasting approximately 4 days. 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 - Reports heavy bleeding on the heaviest days, requiring changing protection every 1-2 hours, and passing large clots. - Experiences cramping and lower back pain during menstruation, for which she takes Pamprin. - Occasionally experiences nausea as part of PMS symptoms. - Notes post-menstrual spotting, described as a spot of shhh type stuff when wiping. Weight Management - Currently on a GLP-1 medication for about 2 years, resulting in a total weight loss of 40 pounds. - Reports that the weight loss has been slow but steady. - Experiences slower bowel movements since starting the GLP-1 medication, but denies any significant constipation or changes in stool color. - Maintains an active lifestyle Family History of Cancer - Maternal grandmother diagnosed with ovarian cancer in her 60s. - Mother has a history of uterine polyps but no cancer. - No other known family history of cancer on either the maternal or paternal side. HISTORY: OB History Gravida3 Para2 Term1 Preterm1 AB1 Living2 SAB1 IAB0 Ectopic0 Multiple0 Live Births2 Sweeper Brush Maker Machine History LMP: 10/31/2024 (Exact Date), Having periods Age at Menarche: 16 Age at First : Age at Menopause: Sweeper Brush Maker Machine History Comments: Sexual Activity: Yes; Male; BTO w/ c/s Contraception: Tubal Ligation Menstrual Tracking History Flowsheet Row Office Visit from 11/05/2024 in OB/Gynecology Period Cycle (Days) 28 Period Duration (Days) 4 Menstrual Flow Moderate PAST MEDICAL HISTORY Diagnosis Date Anemia A TEENAGER Hypothyroid Infertility, female WITH 1ST Rheumatoid Arthritis Seroma ANTERIOR TO UTERUS , SEE US 03/2011 Trauma LEFT ELBOW FRACTURE 2012 PAST SURGICAL HISTORY Procedure Laterality Date DELIVERY ONLY 05/20/2007 , low cervical DELIVERY ONLY 11/14/2013 , low transverse EXCISION PILONIDAL CYST/SINUS SIMPLE HERNIA REPAIR HX 2018 abdominal recti repair and tummy tuck at same time LIG/TRNSXJ FLP TUBE ABDL/VAG APPR UNI/BI 11/14/2013 Tubal ligation PAST SURGICAL HISTORY OF breast reduction PAST SURGICAL HISTORY OF RIGHT ELBOW FAMILY HISTORY Problem Relation Age of Onset Thyroid Mother other (Uterine problems) Mother Needed D&C Hypertension Father other (ovarian cancer) Maternal Grandmother 60 - 69 Heart Maternal Grandfather Hypertension Paternal Grandmother Heart Paternal Grandfather Diabetes Paternal Uncle Social History Tobacco Use Smoking status: Never Smokeless tobacco: Never Vaping Use Vaping status: Never Used Substance Use Topics Alcohol use: Yes Comment: Rarely,NOT WHILE Drug use: No Current Outpatient Medications Medication Sig meloxicam (MOBIC) 15 mg tablet Take 15 mg by mouth. spironolactone (ALDACTONE) 50 mg tablet Take 50 mg by mouth once daily. ALPRAZolam (XANAX) 0.5 mg tablet Take 0.5 mg by mouth at bedtime as needed. (Patient not taking: Reported on 11/05/2024) miSOPROStol (CYTOTEC) 200 mcg tablet Take 2 tabs the night before & 2 tabs the morning of the procedure - vaginally. (Patient not taking: Reported on 11/05/2024) No current facility-administered medications for this visit. ALLERGIES No Known Allergies REVIEW OF SYSTEMS: Constitutional: (+) weight loss Gastrointestinal: (+) nausea, (+) constipation, (-) hematochezia, (-) melena Genitourinary: (+) left pelvic pain, (+) pelvic pressure, (+) dyspareunia, (+) heavy menstrual bleeding with clots, (+) dysmenorrhea, (+) vaginal dryness, (-) urinary incontinence, (-) vaginal bulge sensation Musculoskeletal: (+) low back pain Skin: (+) hair changes, (+) skin changes Endocrine: (-) hot flashes Objective SENSITIVE EXAM: The sensitive examination was discussed with the Patient or Patient's Authorized Territory Sales Manager. As applicable, any other physician, advance practice provider, medical student, or other health professional student that will be observing or involved in the sensitive examination for educational or training purposes was discussed with the Patient or Authorized Territory Sales Manager. The Patient or Authorized Territory Sales Manager has agreed to proceed with the sensitive examination. (Sensitive examination includes inspection and/or palpation of the breasts, pelvis, prostate and anorectal regions). PHYSICAL EXAM: BP 122/82 Wt 184 lb (83.5kg) LMP 10/31/2024 GENERAL: Pleasant; in no apparent distress BREAST: soft, non-tender, symmetric, no dominant mass, normal nipple-areolar complex, no lymphadenopathy, no nipple discharge PULMONARY: normal inspiratory effort ABDOMEN: soft, tenderness in the left lower quadrant, no masses : - PELVIC: external genitalia normal, normal Bartholin's glands, urethra, Noxapater's glands, no vulvar lesions, no cervical lesions, good vaginal support, physiologic discharge present, normal appearing perineal body and perianal region - BIMANUAL: uterus normal size, shape and consistency,left adenexal fullness and tenderness NEURO: alert and oriented x3 EXTREMITIES: normal Assessment & Plan ASSESSMENT AND PLAN: 1. Menorrhagia with regular cycle (N92.0) 2. Dysmenorrhea (N94.6) - Menstrual cycles occur every 3.5 to 5 weeks, lasting approximately 4 days with heavy flow and clotting on the first and second days. Associated symptoms include nausea, cramping, and lower back pain. - Performed endometrial biopsy to rule out endometrial hyperplasia or polyps. - Discussed potential treatment options including endometrial ablation and IUD placement to reduce menstrual bleeding. - Follow-up appointment scheduled for next week to discuss biopsy results and further management. 3. Ovarian cyst, left (N83.202) - Recent ultrasound revealed a 7 cm cyst on the left ovary. - Ordered repeat ultrasound to be performed on Monday for further evaluation. - Discussed potential surgical options, including laparoscopic removal of the cyst and salpingectomy. - Follow-up appointment scheduled for next week to discuss ultrasound results and surgical options. - may need tumor markers or MIGS consult depening on US findings. repeort from previous US reviewed, but report very vague, need more details. brought disc today and I will try to access images later. 4. Family history of ovarian cancer (Z80.41) - Maternal grandmother diagnosed with ovarian cancer in her 60s. - Discussed genetic risk and potential preventive measures, including salpingectomy while preserving ovarian function to reduce cancer risk. -D/w her does not meet criteria for genetic testing at this time and most ovarian cancers are not hereditary. Recommend routine cancer reducing measures such as low fat diet/limit ETOH and exercise. d/w her options for heavy bleeding, discuss further next appt. Josie Grace MD Radha is a 49 year old who presents today for an endometrial biopsy for abnormal uterine bleeding. test: negative UNIVERSAL PROTOCOL / SAFETY CHECKLIST Procedure to be Performed: EMB Sign In: A Moment of CARE was completed. Appropriate PPE (Personal Protective Equipment) worn by all providers involved with the procedure. Special equipment not required. Patient/Surrogate Stated/Verified: Patient name, Date of , Relevant allergies, and The intended procedure Time Out: Relevant labs, photos, and/or imaging studies have been reviewed. Intended patient and procedure match the source document(s) (e.g. consent, H&P, associated studies [imaging, pathology]) are not applicable. Consent obtained and matches the intended procedure. Yes. Correct side/site is not applicable. Medications required for this procedure are verified. Fire risk assessed and is not applicable. Implants: are not applicable. Sign Out: Specimens are all correctly labeled and sent. All instruments, equipment, possible retained foreign bodies are accounted for. Yes. The post-procedure plan of care has been communicated to the patient or surrogate. PROCEDURE: EXTERNAL GENITALIA: Normal in appearance without lesions VAGINA: Normal in appearance without lesions BIOPSY: Speculum placed into the vagina with excellent visualization of the cervix. Cervix cleaned with betadine. Anterior lip of cervix grasped with single toothed tenaculum. Uterus sounded to 10 cm. Pipelle inserted into the uterus without difficulty and endometrial biopsy obtained. 2 passes made. Specimen labeled and sent to pathology. Procedure Summary: Patient tolerated procedure well. ASSESSMENT: abnormal uterine bleeding PLAN: Specimens labeled and sent to Pathology. Will notify patient of results in 1-2 weeks. Post-procedure instructions reviewed and written material given to the patient. Josie Grace MD documented in this encounter [facility] 11-05-2024 Instructions Sharri Mcmillan MA - 11/05/2024 10:39 AM EDT Endometrial Biopsy Your provider has recommended an endometrial biopsy. For more information, My [facility] Endometrial Biopsy How do I prepare for an endometrial biopsy? You shouldn t need to do much to prepare for an endometrial biopsy. Let your healthcare provider know what medications or supplements you take and if you have any allergies. They can let you know if you should stop taking certain medications before the biopsy. Some healthcare providers recommend taking a nonsteroidal anti-inflammatory drug (NSAID) like ibuprofen before the biopsy to help with pain. Your provider may recommend a medication to help prepare your cervix for the biopsy, often taken by mouth one and two days before the procedure. Ask your healthcare provider any questions you have before the procedure so you know exactly what to expect. Generally, an endometrial biopsy is very low-risk and safe. documented in this encounter [facility] Evaluation note Diagnosis Menorrhagia with regular cycle- Primary Excessive or frequent menstruation Dysmenorrhea Ovarian cyst, left Other and unspecified ovarian cyst Family history of ovarian cancer Family history of malignant neoplasm of ovary [facility] Menorrhagia with regular cycle Excessive or frequent menstruation Dysmenorrhea Ovarian cyst, left Other and unspecified ovarian cyst [facility] Diagnosis Menorrhagia with regular cycle- Primary Excessive or frequent menstruation Dysmenorrhea Ovarian cyst, left Other and unspecified ovarian cyst Family history of ovarian cancer Family history of malignant neoplasm of ovary Encounter for sterilization Sterilization Uterine scar from previous delivery Endometrial polyp Polyp of corpus uteri * Assessment & Plan Note - Josie Grace MD - 11/20/2024 4:39 PM EDT Associated Problem(s): Dysmenorrhea r/b/a to hysteroscopy D&C w/ polyp resection if present and IUD insertion, desires to proceed. * Assessment & Plan Note - Josie Grace MD - 11/20/2024 4:39 PM EDT Associated Problem(s): Family history of ovarian cancer d/w her bilateral salpingectomy is risk reduction, desires this * Assessment & Plan Note - Josie Grace MD - 11/20/2024 4:39 PM EDT Associated Problem(s): Encounter for sterilization d/w her bilateral salpingectomy will be permanent sterilization, does not desire future child bearing * Assessment & Plan Note - Josie Grace MD - 11/20/2024 4:39 PM EDT Associated Problem(s): Uterine scar from previous delivery defect noted D/w her with this I would not recommend endometrial ablation, concern about perforation or thermal injury to other internal organs documented in this encounter [facility] for visit Narrative* Diagnostic Procedure Only (Routine) - Closed Specialty Diagnoses / Procedures Referred By Mark stack Referred To Contact [facility] Diagnoses Menorrhagia with regular cycle Dysmenorrhea Ovarian cyst, left Procedures PELVIC US WHI US PELVIC NONOBSTETRIC REAL-TIME IMAGE COMPLETE Josie Grace MD [address] [place] [address] Phone: tel: fax: [facility] [address] [place] [id number] Referral ID Status Reason Start Date Expiration Date V isits Requested Visits Authorized [id number] Closed Auto-Generate d Referral 11/05/2024 11/05/2025 1 1 [facility] Summary Purpose Family History No Family History Records FoundNo Family History Records FoundNo Family History Records FoundNo Family History Records FoundNo Family History Records FoundNo Family History Records FoundNo Family History Records FoundNo Family History Records Found Advance Directives No Advanced Directives Records FoundNo Advanced Directives Records FoundNo Advanced Directives Records FoundNo Advanced Directives Records FoundNo Advanced Directives Records FoundNo Advanced Directives Records FoundNo Advanced Directives Records FoundNo Advanced Directives Records Found Additional Source Comments INFORMATION SOURCE (unrecogn ized section and content) DATE CREATED AUTHOR 04/09/2018 [facility] DATE CREATED AUTHOR AUTHOR'S ORGANIZ ATION 11/20/2019 [facility] DATE CREATED AUTHOR AUTHOR'S ORGANIZ ATION 05/13/2021 [facility] DATE CREATED AUTHOR AUTHOR'S ORGANIZ ATION 02/07/2023 [facility] ([place]) DATE CREATED AUTHOR AUTHOR'S ORGANIZ ATION 08/18/2024 [facility] DATE CREATED AUTHOR AUTHOR'S ORGANIZ ATION 08/24/2024 [facility] DATE CREATED AUTHOR AUTHOR'S ORGANIZ ATION 11/22/2024 [facility] DATE CREATED AUTHOR AUTHOR'S ORGANIZ ATION 11/28/2024 [facility] Source Comments (unrecognize d section and content) In the event this informatio n is protected by the Federal Confidentiality of Alcohol and Drug Abuse Patient Records regulations: The Federal rules restrict any use of the information to criminally investigate or prosecute any alcohol or drug abuse patient.[facility] the event this information is protected by the Federal Confidentiality of Alcohol and Drug Abuse Patient Records regulations: The Federal rules restrict any use of the information to criminally investigate or prosecute any alcohol or drug abuse patient.[facility] the event this information is protected by the Federal Confidentiality of Alcohol and Drug Abuse Patient Records regulations: The Federal rules restrict any use of the information to criminally investigate or prosecute any alcohol or drug abuse patient.[facility] the event this information is protected by the Federal Confidentiality of Alcohol and Drug Abuse Patient Records regulations: The Federal rules restrict any use of the information to criminally investigate or prosecute any alcohol or drug abuse patient.[facility] Reason for Visit (unrecogniz ed section and content) Reason Comments Consult Hysterectomy or othe r options Reason Comments Menstrual Problem FOR RECORDS PERTAINING TO PATIENTS WHO ARE OR HAVE BEEN ENROLLED IN A CHEMICAL DEPENDENCY/SUBSTANCEABUSE PROGRAM, SOME INFORMATION MAY BE OMITTED. This clinical summary was aggregated from multiple sources. Caution should be exercised in using it in the provision of clinical care. This summary normalizes information from multiple sources, and as a consequence, information in this document may materially change the coding, format and clinical context of patient data. In addition, data may be omitted in some cases. CLINICAL DECISIONS SHOULD BE BASED ON THE PRIMARY CLINICAL RECORDS. [facility]. provides no warranty or guarantee of the accuracy or completeness of information in this document.
--- NOTE | 2024-11-28 10:25 | FALS_PTH ---
PATIENT: RADHA MORALES [place] [facility] [place][id number] AGE/SX: 49/F ROOM: RE11/28/[address]: Dr. Lore Bartlett MD : 1975 BED: DIS: 11/28/2024 SPEC #: [id number] RECD: 11/28/24 13:26 STATUS: NAKUL REAlphonso #: [id number] MARTELL: 11/28/24 10:[address]: Lore Bartlett DEPT: SURGICAL PATHOLOGY RECD BY: Derrick Groves ENTERED: 11/28/24 15:09 SP TYPE: FALL TUBES OTHR DR: Maria Esther Barboza PA-C Tissues: A - Fallopian tube B - Fallopian tube C - Endometrium, NOS Procedures: Immunohistochemical Stains Surgery Specimen Level II Surgery Specimen Level IV HEADER OPERATION: Laparoscopic left salpingo-oopherectomy, right salpingectomy PRE-OP DIAGNOSIS: Left ovarian cyst, sterilization, menorrhagia with regular cycle, endometrial polyp TISSUE SUBMITTED: A- Left fallopian tube and ovary, B- Right fallopian tube, C- Endometrial curettings MICROSCOPIC DIAGNOSIS A. Fallopian tube, ovary, left, salpingo-oophorectomy: - Ovary with corpus luteum cyst and endometriosis - see note. - Fallopian tube with small paratubal cysts (complete luminal cross-section confirmed). - Note: IHC for CD10 highlights endometrial stroma, supporting the histologic impression of endometriosis. B. Fallopian tube, right, salpingectomy: - No specific pathologic change (complete luminal cross-section confirmed). C. Endometrium, curettage: - Fragments of secretory endometrium and lower uterine segment. MICROSCOPIC DESCRIPTION Slides are reviewed. GROSS DESCRIPTION Received in 3 formalin containers labeled with the patient's name and date of . Designated as: A. Left fallopian tube and ovary is a 3.9 cm in length by 0.6 cm in diameter pink-purple fimbriated fallopian tube with few paratubal cyst, 0.1 cm to 0.4 cm. There is a 22.2 g orr-pink to white, cerebriform ovary measuring 5.7 x 3.9 x 2.2 cm. Sectioning reveals orr-white solid cut surfaces with identifiable corpora luteum/albuginea with focal cyst, the largest measuring 2.5 x 2.0 x 1.4 cm; the cyst contains thin serous fluid and the wall is orr-red, granular and wrinkled. No definitive excrescences are identified. Pitch Gatherer sections are submitted in 5 cassettes as follows: A1: Fallopian tubeA2-A4: Ovarian cyst, largestA5: Ovarian parenchyma with smaller cystB. Right fallopian tube is a orr-pink fimbriated fallopian tube in 2 pieces, collectively measuring 3.0 cm in length by 0.4 cm in diameter. There is a 0.1 cm paratubal cyst. Also within the container is a 1.4 x 0.4 x 0.3 cm evangelista metallic clamp (consistent with a contraceptive device). Pitch Gatherer sections are submitted in 1 cassette. C. Endometrial curettings is a 2.4 x 1.9 x 0.3 cm aggregate of pink-red tissue fragments and clotted blood. Entirely submitted in 1 cassette. [place] 11/28/2024 CPT:[id number]
--- NOTE | 2024-11-28 10:59 | DCINST_ITS ---
Discharge Instructions DC O2, CPAP, BIPAP needs Home O2 Discharge instructions: No Dressing / Incision Discharge Activity: May Drive (in 2-3 days when no longer taking pain medication) May shower in (days): 1 May resume sexual activity in: 2 weeks Lifting Restrictions: none Additional Activity Instructions:: Ambulate often the next week after surgery. Nothing in the vagina for 7 days. Dressing / Incision Call your doctor if your incision/area has: Continuous Slow Oozing, Sudden Increased Bleeding, Increased Pain/ Swelling, Increased Redness and Foul Smelling Discharge Call your doctor if you observe: Fever of 101 or Higher Cleanse incision/area with: Soap & Water Additional Dressing/Incision Instructions:: Your incisions have skin glue, leave it on for 10 days or until it falls off. It can get wet. Follow Up Care Please Follow Up With: Lore Bartlett MD When: Call [phone] for follow-up appointment as needed or send a [employer] message with questions. Test Results: Test results from this visit will be discussed in further detail at your follow- up appointment, if applicable. Discharge Plan Admission Attending Provider: Lore Bartlett Primary Care Provider: Maria Esther Barboza Instructions Print Language: Belizean Discharge Orders/Prescriptions Prescriptions: New oxycodone 5 mg tablet 5 mg PO Q8H PRN PRN (Reason: severe pain) 7 Days Qty: 10 0RF No Action spironolactone 50 mg tablet 50 mg PO DAILY meloxicam 15 mg tablet 15 mg PO DAILY Mounjaro 2.5 mg/0.5 mL pen injector 2.5 mg subcut QWEEK Rx Instructions: for 4 weeks Referrals / Follow Up: Maria Esther Barboza PA-C [Primary Care Provider] - Disposition Disposition (needs filled in before D/C Order can be placed): Home, Self Care
[2024-11-28] MEDS: Levonorgestrel IUD (Liletta) 1 EACH INTRA-UTER (12:10)
--- NOTE | 2024-11-28 12:42 | PCM.POST.ANE ---
Anesthesia: Postop Eval I Current Vital Signs Temperature: 96.9 F Pulse Rate: 94 Blood Pressure: 107/65 Respiratory Rate: 16 Pulse Ox: 97 Oxygen Delivery Method: Room Air Assessment Airway patent: Yes Spontaneous unlabored respirations: Yes Mental status: Awake and Calm nausea: No Vomiting: No Anesthesia Complication: No Fluid Hydration Crystalloid volume administer (ml): 600 Total IV fluid infused: 600 Progress Note Anesthesia document: Postop Eval 1 completed: Yes
--- NOTE | 2024-11-28 12:47 | PCM.OPRPT ---
Problems Associated Problem List Diagnoses (1) Encounter for IUD insertion: (2) Endometrial polyp: (3) Menorrhagia with regular cycle: (4) Left ovarian cyst: Operative Report (Standard) Operative Information Date of Procedure: 11/28/24 Pre-Operative Diagnosis: left ovarian cyst, menorrhagia, endometrial polyp, IUD insertion Post-Operative Diagnosis: Complex left ovarian cyst, menorrhagia, IUD insertion Surgery/Procedure Performed: Laparoscopic left salpingo-oophorectomy, right salpingectomy, lysis of omental adhesions to anterior abdominal wall, hysteroscopy D&C with Liletta IUD insertion weather strip mechanic: Yes Fabric Normalizer: Khushi Clarke Tasks completed by production administrative assistant: Closing, Hemostasis: Electrocautery, Trocar and Retracting Additional nurses medical assistants phlebotomists?: No Type of Anesthesia: General RN Documented Start/Stop Times: Operation Date: 11/28/24 10:25 Case Time Into Pre-Op 11/28/24 08:56 Out of Pre-Op 11/28/24 10:48 Anesthesia Start 11/28/24 10:57 Into Room 11/28/24 10:57 Procedure Start 11/28/24 11:19 Procedure End 11/28/24 12:17 Anesthesia End 11/28/24 12:27 Out of Room 11/28/24 12:27 Into Recovery 11/28/24 12:28 Procedure Start Time: 11:19 Procedure Stop Time: 12:17 Select all DRAINS/GRAFTS/IMPLANTS that apply: None Special Medications: none Estimated Blood Loss: 40 Fluids Replaced: 500 cc Specimen collected: Yes Description of specimen(s) removed: endometrial curettings, right fallopian tube, left fallopian tube and ovary Description of surgery: The patient was taken to the operating room where she was prepped and draped in the dorsolithotomy position. A weighted speculum was placed in the vagina and the anterior lip of the cervix was grasped with a tenaculum. The jesica uterine manipulator was placed and the remainder of the instruments were removed from the vagina. Attention was turned to the abdomen. All port sites were infiltrated with 0.5% Marcaine before skin incisions were made. A 5 mm supraumbilical midline incision was made. The anterior abdominal wall was tented up with 2 towel clamps while a 5 mm blade less trocar and sleeve were directly inserted. Intraperitoneal placement was confirmed with the laparoscope. The pneumoperitoneum was created and the underlying abdominal contents were intact. The patient was placed in Trendelenburg. Right and left lower quadrant ports were placed under direct visualization lateral to the inferior epigastric vessels. The bowel was swept away and the above findings were noted. There were some omental adhesions noted near the midline port that had to be taken down in order to allow for adequate visualization. There is no bowel contained within these after inspection and the omental adhesions were clamped sealed and transected with the LigaSure device and an hemostasis was noted. The LigaSure device was used to clamp seal and transect the antimesenteric portions of the right tube to the cornual insertion of the uterus. The tube was amputated from the uterus and the pedicles were all confirmed to be hemostatic. The Filshie clips were removed as well. The infundibulopelvic ligament was identified and the ureter was down and seen peristalsing. The infundibulopelvic Black ligament was clamped sealed and transected with the LigaSure device. The utero-ovarian ligament was clamped sealed and transected with the LigaSure device and any piece of the broad ligament that remained was sealed and transected with the LigaSure device and the left tubal portions and ovary and cyst were removed. The midline port was extended with blunt and sharp dissection and the 10 mm Endo Catch bag was placed in the peritoneal cavity and the ovary and cyst placed in the bag. The ovary was brought up to the incision and the cyst was ruptured to help condense it and it was brought out through the midline port. The pedicles were again examined and found to be hemostatic. The lateral ports were removed under direct visualization and no active bleeding was noted. The pneumoperitoneum was released. The midline incision fascia was closed with 0 Vicryl suture in a running standard fashion. The skin incisions were closed with Monocryl suture in a subcuticular fashion and skin glue. The Jesica uterine manipulator was removed. The cervix was dilated serially with Hegar dilators. Initially a false tract was made. The retroflexion of the uterus made it very difficult to place the hysteroscope but I was finally able to place the hysteroscope into the fundus. The Symphion hysteroscope was placed into the uterine cavity and the above findings were noted. Bilateral tubal ostia were identified. There were no polyps noted. The hysteroscope was removed. A gentle sharp curettage was done of the uterine cavity. The Liletta device was loaded and inserted in the usual sterile fashion and the uterus sounded to 10 cm. The strings were trimmed to 2 cm. The instruments were removed from the vagina. The specimen was handed off and sent to pathology. All sponge and needle counts were correct. Vaginal sweep was performed by me. The patient was awakened and taken to the recovery room in stable condition. Hysteroscopic fluid deficit was 550 cc of normal saline The vaginal instruments were removed and the vaginal sweep was completed by me. The procedure was performed by me with assistance. All sponge and needle counts were correct and the patient was taken to the recovery room in stable condition. Surgical Findings: Retroverted uterus somewhat tethered to anterior abdominal wall from section adhesions, normal right ovary, right fallopian tube transected with Filshie clips present, large left ovarian cyst and fallopian tube with evidence of previous fill she tubal ligation, normal cervix and vagina, omental adhesions approximately 4 x 2 cm where the umbilicus would anatomically of been, no evidence of endometriosis Complications Complications: No Admit VTE Documentation VTE Present on Admission: No VTE Mechan Device Prophylaxis: [facility] VTE Pharm Prophylaxis ordered?: No
--- NOTE | 2024-11-28 14:11 | POSTOPAN2_ITS ---
Anesthesia Postop Eval I Sum Postop Eval Completion status Anesthesia document: Postop Eval 1 completed: Yes Anesthesia Postop Eval I Summary Anesthesia Postop Eval I Summary: Anesthesia Postop Eval I: Assessment Summary Airway patent Yes 11/28/24 12:43 [email or web address] Spontaneous unlabored Yes 11/28/24 12:43 [email or web address] respirations Mental status Awake,Calm 11/28/24 12:43 [email or web address] nausea No 11/28/24 12:43 [email or web address] Vomiting No 11/28/24 12:43 [email or web address] Anesthesia Postop Eval I: Fluid Summary Crystalloid volume administer 600 11/28/24 12:43 [email or web address] (ml) Colloids volume administered ( ml) Blood Product volume administered (ml) Total IV fluid infused 600 11/28/24 12:43 [email or web address] Anesthesia Postop Eval I: Summary Notes Anesthesia Complication No 11/28/24 12:43 [email or web address] Anesthesia Complication Comment: Post-operative progress note Anesthesia: Postop Eval II Evaluation Mental status: Awake and Calm Pain Level: 1 nausea: No Vomiting: No Complications Anesthesia Complication: No
--- NOTE | 2024-11-28 14:11 | PCM.POSTANE2 ---
Anesthesia Postop Eval I Sum Postop Eval Completion status Anesthesia document: Postop Eval 1 completed: Yes Anesthesia Postop Eval I Summary Anesthesia Postop Eval I Summary: Anesthesia Postop Eval I: Assessment Summary Airway patent Yes 11/28/24 12:43 [email or web address] Spontaneous unlabored Yes 11/28/24 12:43 [email or web address] respirations Mental status Awake,Calm 11/28/24 12:43 [email or web address] nausea No 11/28/24 12:43 [email or web address] Vomiting No 11/28/24 12:43 [email or web address] Anesthesia Postop Eval I: Fluid Summary Crystalloid volume administer 600 11/28/24 12:43 [email or web address] (ml) Colloids volume administered ( ml) Blood Product volume administered (ml) Total IV fluid infused 600 11/28/24 12:43 [email or web address] Anesthesia Postop Eval I: Summary Notes Anesthesia Complication No 11/28/24 12:43 [email or web address] Anesthesia Complication Comment: Post-operative progress note Anesthesia: Postop Eval II Evaluation Mental status: Awake and Calm Pain Level: 1 nausea: No Vomiting: No Complications Anesthesia Complication: No
--- NOTE | 2024-11-28 15:54 | SUR.PHASEII ---
PATIENT GOT UP TO WALK THE HALLS AND VOMITED 400 CC'S OF YELLOW LIQUID. PATIENT WANTS TO SEE IF THE NAUSEA NOW PASSES BEFORE TAKING ANY MORE NAUSEA MEDICATIONS. SHE IS CURRENTLY WALKING IN WHEAT.
== END 2024-11-28 16:39 | disposition home or self-care (01) ==
LOC: SDC 08:51 → AC 08:52
PROVIDERS: PCP Family Medicine; Referring Provider Obstetrics & Gynecology; Visit Provider Obstetrics & Gynecology
PROC: (CPT 58720; principal; 2024-11-28 10:10)
PROC: 0UB98ZZ Excision of Uterus, Via Natural or Artificial Opening Endoscopic (ICD-10-PCS; CPT 58558; 2024-11-28 10:10)
DX: N83.12 Corpus luteum cyst of left ovary (principal); M06.9 Rheumatoid arthritis, unspecified; N80.102 Endometriosis of left ovary, unspecified depth; N83.8 Other noninflammatory disorders of ovary, fallopian tube and broad ligament; N92.0 Excessive and frequent menstruation with regular cycle; K66.0 Peritoneal adhesions (postprocedural) (postinfection); Z30.430 Encounter for insertion of intrauterine contraceptive device; I10 Essential (primary) hypertension; Z98.51 Tubal ligation status; Z79.899 Other long term (current) drug therapy
CPT/HCPCS: 58661; 58558; 58300; 00840; 80048; 85025; 88302; 88305; 88342; A4216; J2405